=== PATIENT | male | born 1955 | race Caucasian/White ===

== ENCOUNTER 2025-03-22 09:48 | Emergency (ER) | payer MEDICARE, SELFPAY ==
--- NOTE | 2025-03-22 10:00 | ED_ITS ---
HPI - Ear Problem General Chief complaint: Ear Stated complaint: L ear pain Time Seen by Provider: 03/22/25 10:08 Source: patient, RN notes reviewed and old records reviewed Mode of arrival: ambulatory Limitations: no limitations History of Present Illness HPI Narrative: 69 year old male presents to [facility] care with complaints of pain to his left ear and feelings like water in his ear. Patient reports past history of excessive cerumen build up in his ears and he use to get his ears cleaned out at his doctor's office but they don't do that anymore. He reports that about a week ago he was eating a steak sandwich and felt a pop in his ear and ever since he has had some discomfort in his ea.,Patient reports no fevers or any dizziness. MD Complaint: ear pain Location: left ear Duration: intermittent Severity: mild Discharge from ear: Reports yes - clear Treatment prior to arrival: none Related Data Home Medications ?Medication ?Instructions ?Recorded ?Confirmed ?Last Taken ?Type fenofibrate nanocrystallized 145 mg PO 03/22/25 Unkno wn History mg tablet hydrochlorothiazide 25 mg tablet mg 03/22/25 Unknown History losartan 50 mg tablet mg 03/22/25 Unknown History simvastatin 40 mg tablet mg 03/22/25 Unknown History tamsulosin 0.4 mg capsule mg PO 03/22/25 Unknown Hist ory Allergies Allergy/AdvReac Type Severity Reaction Status Date / Time No Known Allergies Allergy Verified 03/22/25 11:08 Review of Systems Review of Systems: CONSTITUTIONAL: Denies malaise, chills, sweats, or fever. EYES: Denies visual changes, redness, or discharge. ENT: Reports rhinorrhea, congestion, sinus pain,left otalgia and sore throat. CARDIOVASCULAR: Denies chest pain, palpitations, or edema. RESPIRATORY: Reports cough.? Denies dyspnea. GASTROINTESTINAL: Denies abdominal pain, nausea, vomiting, diarrhea SKIN: Denies rash or itching. MUSCULOSKELETAL: Denies myalgia. NEUROLOGIC: Denies headache. All systems reviewed & are unremarkable except as noted in HPI and below PMFSH Past Medical History Medical History (Updated 03/24/25 @ 08:54 by Ciera Ham NP) Elevated cholesterol Hypertension Cancer of right kidney scheduled for right nephrectomy later this month March 2025 Bladder cancer Surgical History Surgical History (Updated 03/24/25 @ 08:47 by Ciera Ham NP) History of bladder surgery Social History Social History (Updated 03/24/25 @ 08:48 by Ciera Ham NP) Smoking status: Never smoker Alcohol intake: current Alcohol use details: rare social Substance use type: does not use Living arrangements: with family Gender identity (if verbalized by the patient): Male Comments At time of signature, agree with nursing past medical, surgical, social and family history. There is no relevant family history pertinent to the presenting complaint Exam Narrative: GENERAL: Well-appearing, well-nourished, and in no acute distress. HEAD: Normocephalic EYES: PERRLA, conjunctivae clear ENT: Nares clear, turbinates edematous and erythematous, clear discharge. Mucous membranes moist. Right TM pearly alejandre with dull light reflex; Left ear with cerumen impaction see procedure note able to visualize TM after some of wax removed with no TM redness, ear canal without redness, no tragal tenderness. Oropharynx erythematous without lesions. Tonsils not enlarged and without exudate, no drooling, no hoarseness, no trismus, uvula midline. NECK: Supple. No lymphadenopathy CHEST: Clear to auscultation, breath sounds equal. No wheezing, rhonchi, rales, or stridor. No respiratory distress, speaks in full sentences.no cough, SAO2 99% on room air HEART: Regular rate and rhythm. No murmur heard. SKIN: Warm, dry, no rash. NEURO: Alert and oriented x3. PSYCH: Normal mood and affect Course Course Emergency Course: Patient is aware of diagnosis, understands and agrees to treatment plan.? Anticipatory guidance given.? Patient agrees to follow-up as directed and is aware of reasons to seek care at the emergency department. Portions of this record may have been created with voice recognition software Level of Care: Express Care Visit Vital Signs Vital signs: Vital Signs Temperature 36.6 C 03/22/25 10:08 Pulse Rate 86 03/22/25 10:08 Respiratory Rate 16 03/22/25 10:08 Blood Pressure 124/65 03/22/25 10:08 Pulse Oximetry 99 03/22/25 10:08 Temperature 36.6 C 03/22/25 10:08 Pulse Rate 86 03/22/25 10:08 Respiratory Rate 16 03/22/25 10:08 Blood Pressure 124/65 03/22/25 10:08 Pulse Oximetry 99 03/22/25 10:08 Reviewed Procedures Ear Wax Removal Left Ear: Ear Wax Removal Date: 03/22/25 Ear Wax Removal Time: 10:25 Cerumenolytic Used: 5-10% Sodium Bicarb solution Results: Re-examined: some cerumen remains TM Examination: TM(s) intact, normal appearance Ear Canal Exam: atraumatic Patient Tolerated Procedure: well Complications: no problems Technique: ear canal irrigated and ear canal curetted Additional Comments: left ear irrigated and curette used to remove some yellow wax, some cerumen remains. Patient tolerated procedure well Medical Decision Making Differential Diagnosis Differential Diagnosis: otitis media left ear, otitis externa left ear, cerumen impaction left ear, otalgia left ear Medical Records Medical records reviewed: Yes I reviewed the external patient's medical records. Vital Signs Vital Signs: Vital Signs Temperature 36.6 C 03/22/25 10:08 Pulse Rate 86 03/22/25 10:08 Respiratory Rate 16 03/22/25 10:08 Blood Pressure 124/65 03/22/25 10:08 Pulse Oximetry 99 03/22/25 10:08 Temperature 36.6 C 03/22/25 10:08 Pulse Rate 86 03/22/25 10:08 Respiratory Rate 16 03/22/25 10:08 Blood Pressure 124/65 03/22/25 10:08 Pulse Oximetry 99 03/22/25 10:08 reviewed Critical Care Time Critical Care Time Critical Care Time: No Discharge Plan Discharge Clinical Impression: Impacted cerumen of left ear, Otalgia of left ear Patient Disposition: Home Condition: Stable Instructions: Carbamide Peroxide (Into the ear) Additional Instructions: use Debrox or generic form 10 drops to each ear once per week Tylenol for any discomfort Zyrtec or Claritin daily for any sinus congestion or drainage If your symptoms persist, change or worsen significantly before you can contact your personal physician then please, without delay, go to the emergency department for further evaluation. Follow-up with PCP in 7-10 days or sooner if needed Patient Language: Canadian Prescriptions: No Action losartan 50 mg tablet simvastatin 40 mg tablet tamsulosin 0.4 mg capsule PO hydrochlorothiazide 25 mg tablet fenofibrate nanocrystallized 145 mg tablet PO Follow-up/Referrals: PHYSICIAN NOT ON STAFF,NONSTAFF [Primary Care Provider] Time of Disposition: 10:55 Quality [place] Coma Scale Eyes: Open Verbal: Oriented and Alert Motor: Follows Commands Kyle Coma Total Score: 15
[2025-03-22 10:08] VITALS: BP 124/65; PULSE 86; RESP 16; TEMP 36.6; O2SAT 99
== END 2025-03-22 10:58 | disposition home or self-care (01) ==
PROVIDERS: Emergency Provider Registered Nurse
DX: H61.22 Impacted cerumen, left ear (principal); H92.02 Otalgia, left ear; I10 Essential (primary) hypertension; E78.00 Pure hypercholesterolemia, unspecified; C67.9 Malignant neoplasm of bladder, unspecified; C79.00 Secondary malignant neoplasm of unspecified kidney and renal pelvis
CPT/HCPCS: 69210; 99202; A9270; G0463

== ENCOUNTER 2025-05-10 09:18 | Outpatient (CLI) | payer MEDICARE, SELFPAY ==
--- OUTSIDE RECORDS SUMMARY | 2025-05-10 08:30 | XMS_ITS | Encounter Summary ---
Author Organization [facility] Address [address] [place] [address] Care Team Providers Care Business Intelligence Architect Name Role Phone Kemal Ash DO Primary Care Provide r Reason for Referral * Eval and Treat (Routine) - Open Specialty Diagnoses / Procedures Referred By Contjenn sol Referred To Contact Oncology Diagnoses Carcinoma of right renal pelvis (CMS/HCC) Procedures MI OFFICE/OUTPATIENT ESTABLISHED MOD MDM 30 MIN MI OFFICE/OUTPATIENT NEW MODERATE MDM 45 MINUTES Jay Ayala MD [address] [address] Phone: tel: fax: Referral ID Status Reason Start Date Expiration Date Visits Re quested Visits Authorized [id number] Open 05/10/2025 05/11/2026 1 1 TAL ASSOCIATE MEDIA DIRECTOR Reason for Visit * Reason Comments Establish Care Encounter Details Date Type Department Care Team (Late st Contact Info) Description 05/10/2025 8:30 AM DIGITAL ASSOCIATE MEDIA DIRECTOR Office Visit [facility] Oncology and Hematology - [place] [address] [place] [address] [address] [place] [address] [place] [address] [place] [address] [place] [id number] 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); Chronic anemia Social History Tobacco Use Types Packs/Day Years Used Date Smoking Tobacco: Former Cigars Q uit: 11/06/1981 Passive Smoke Exposure: Past Smokeless Tobacco: Never Tobacco Cessation:Counseling Given: Not Answered Alcohol Use Standard Drinks/Week Comments Not Currently 2 (1 standard drink = 0.6 oz pur e alcohol) No drinks in 3 months Feeling Safe Answer Date Recorded Are you in a relationship wi th someone who hurts you emotionally and/or physically? No 05/04/2025 Food Insecurity Answer Date Recorded Patient needs follow up regardin 12/21/2024 Transportation Needs Answer Date Record ed Patient needs follow up regardin 12/21/2024 Utility Needs Answer Date Recorded Patient needs follow up regardin 12/21/2024 Sex and Gender Information Value Date Recorded Sex Assigned at Not on file Legal Sex Male 4:39 AM DIGITAL ASSOCIATE MEDIA DIRECTOR Gender Identity Not on file Sexual Orientation Not on file documented as of this encounter Last Filed Vital Signs Vital Sign Reading Time Taken Comments Blood Pressure 139/73 05/10/2025 8:32 AM DIGITAL ASSOCIATE MEDIA DIRECTOR Pulse 73 05/10/2025 8:32 AM DIGITAL ASSOCIATE MEDIA DIRECTOR Temperature 36.6 C (97.9 F) 05/10/2025 8:32 AM DIGITAL ASSOCIATE MEDIA DIRECTOR Respiratory Rate 14 05/10/2025 8:32 AM DIGITAL ASSOCIATE MEDIA DIRECTOR Oxygen Saturation 95% 05/10/2025 8:32 AM DIGITAL ASSOCIATE MEDIA DIRECTOR Inhaled Oxygen Concentration - - Weight 112.9 kg (248 lb 12.8 oz) 05/10/2025 8:32 AM DIGITAL ASSOCIATE MEDIA DIRECTOR Height - - Body Mass Index 35.7 05/04/2025 1:40 PM CDT documented in this encounter Progress Notes * Jay Ayala MD - 05/10/2025 12:20 PM CST Hematology-oncology consult Note Requesting Physician George Moya MD Primary Care Physician Kemal Ash, Problem list Patient Active Problem List Diagnosis Code Essential hypertension, benign I10 High cholesterol E78.00 History of bladder cancer Z85.51 Hyperglycemia R73.9 KELLY (acute kidney injury) N17.9 Urothelial cancer (CMS/HCC) C68.9 Previous TREATMENT ? Measurable Disease ? Reason for Visit Anuel Palacio is a 69 y.o. male who was referred for consultation for urothelial carcinoma. History of present illness This is a pleasant 69-year-old male with history of early-stage bladder cancer diagnosed in September 2020 along with history of hypertension, hyperlipidemia developed hematuria in November [address] Mcknight in the urology. CT abdomen pelvis done on January 01, 2025 showed right renal pelvis mass with there was concern of possible liver lesion. Patient had MRI abdomen done on January 16 that showed no suspicious finding in the liver or in the kidney. PET scan done on February 27, 2025 showed no uptake in any areas in the lungs or in the liver. Patient had cystoscopy done on February 14, 2025 and biopsy of the right kidney confirmed papillary urothelial carcinoma at the right renal pelvis. Patient underwent right radical nephrectomy on April 03, 2025 and pathology revealed T3 high-grade papillary invasive urothelial carcinoma with predominantly squamous differentiation. Resectionmargins were free of tumor with no lymphovascular invasion. Tumor invades into the peripelvic fat and renal parenchyma. No lymph node or malignancy identified. He is in my office today to discuss adjuvant chemotherapy options. Denies any other complaints today. Past Medical History Past Medical History: Diagnosis Date Cancer (CMS/HCC) bladder 12/2020 Heart disease, unspecified Hematuria HTN (hypertension) Hyperlipidemia Surgical History Past Surgical History: Procedure Laterality Date HX COLONOSCOPY N/A 06/13/2021 COLONOSCOPY performed by Vadim Bliss MD at [facility] HX NASAL/SINUS SURGERY in his teens HX TONSILLECTOMY MI COLONOSCOPY FLX DX W/COLLJ SPEC WHEN PFRMD N/A 01/08/2015 COLONOSCOPY performed by Vadim Bliss MD at [facility] MI COLONOSCOPY FLX DX W/COLLJ SPEC WHEN PFRMD N/A 03/15/2018 COLONOSCOPY performed by Vadim Bliss MD at [facility] MI CYSTO W/DESTRUCTION OF LESIONS N/A 12/06/2020 CYSTOSCOPY BLUELIGHT WITH CYSVIEW performed by Panchito Barrett MD at [facility] CYSTO W/DESTRUCTION OF LESIONS N/A 02/14/2025 CYSTOURETHROSCOPY BLUELIGHT WITH CYSVIEW, WITH RANDOM BLADDER BIOPSY performed by Panchito Barrett MD at [facility] OR MI CYSTO W/INSERT URETERAL STENT Bilateral 01/19/2025 CYSTOURETHROSCOPY URETERAL STENT INSERTION performed by Panchito Barrett MD at [facility] OR MI CYSTO W/INSERT URETERAL STENT Bilateral 02/14/2025 CYSTOURETHROSCOPY URETERAL STENT EXCHANGE performed by Panchito Barrett MD at [facility] MI CYSTOURETHROSCOPY N/A 04/03/2025 CYSTOURETHROSCOPY FLEXIBLE INTRAVESICAL INSTILLATION OF GEMCITABINE performed by Loyd Barrett MD at [facility] OR [facility] MI CYSTOURETHROSCOPY W/DEST &/RMVL TUMOR LARGE N/A 12/06/2020 BLADDER TUMOR TRANSURETHRAL RESECTION performed by Panchito Barrett MD at [facility] OR [facility] MI CYSTOURETHROSCOPY W/DEST &/RMVL TUMOR LARGE N/A 02/14/2025 CYSTOURETHROSCOPY BLADDER TUMOR RESECTION performed by Panchito Barrett MD at [facility] MI CYSTOURETHROSCOPY W/URETERAL CATHETERIZATION Right 12/06/2020 PYELOGRAM RETROGRADE performed by Panchito Barrett MD at [facility] OR [facility] MI CYSTOURETHROSCOPY W/URETERAL CATHETERIZATION Bilateral 01/19/2025 PYELOGRAM RETROGRADE performed by Panchito Barrett MD at [facility] OR MI LAPAROSCOPY NEPHRECTOMY W/TOTAL URETERECTOMY Right 04/03/2025 NEPHROURETERECTOMY ROBOTIC XI performed by Panchito Barrett MD at [facility] OR [facility] MI URETERAL ENDOSCOPY VIA URETEROST W/WO DIL URETER Right 02/14/2025 URETEROSCOPY, BIOPSY performed by Panchito Barrett MD at [facility] OR XR RETROGRADE PYELOGRM W WO KUB Bilateral 02/14/2025 PYELOGRAM RETROGRADE performed by Panchito Barrett MD at [facility] OR Medications Current Outpatient Medications Medication Sig Dispense Refill fenofibrate nanocrystallized (TRICOR) 145 mg tablet TAKE 1 TABLET(145 MG) BY MOUTH DAILY 100 Tablet3 hydroCHLOROthiazide 25 mg tablet TAKE 1 TABLET(25 MG) BY MOUTH DAILY 100 Tablet 3 losartan (COZAAR) 50 mg tablet TAKE 1 TABLET(50 MG) BY MOUTH DAILY 90 Tablet 3 simvastatin (ZOCOR) 40 mg tablet TAKE 1 TABLET(40 MG) BY MOUTH IN THE EVENING 90 Tablet 3 aspirin (ECOTRIN EC) 81 mg Tablet, Delayed Release (E.C.) Take 81 mg by mouth daily. No current facility-administered medications for this visit. Allergies No Known Allergies Immunizations: Immunization History Administered Date(s) Administered (ADACEL/BOOSTRIX)(10 YR UP) TDAP VACCINE, 0.5ML, IM 11/20/2014, 11/20/2014 (CARRIE) COVID-19 VACCINE - EMERGENCY USE AUTHORIZATION, AD26,COV2S(PF) 0.5 ML IM SUSP 09/12/2020,05/03/2021 (PFIZER)(12 YR UP) COVID-19 VACCINE - EMERGENCY USE AUTHORIZATION, MRNA, [id number](PF) 30 MCG/0.3 MLIM SUSP 04/18/2022, 03/22/2023 (PNEUMOVAX 23)(50 YRS UP) PNEUMOCOCCAL POLYSACCHARIDE (PPV23) 0.5 ML, IM 07/07/2019, 06/05/2021 (SHINGRIX)(50 YRS UP) ZOSTER VACCINE RECOMBINANT, 0.5 ML, IM 12/04/2024 INFLUENZA VACCINE HIGH DOSE QUADRIVALENT 65 YR UP PF IM 03/21/2020 INFLUENZA VACCINE QUADRIVALENT 6 MOS UP PF IM 03/25/2018 Influenza Seasonal Unspecified Formulation IM 05/03/2021, 04/18/2022, 03/22/2023 Influenza Vaccine High Dose 65+ Yrs IM 07/07/2019 Influenza Vaccine Quad Split 3+ Yrs Im 03/18/2017 Influenza Vaccine Split 3+ Yrs PF IM 05/10/2015, 04/10/2016 Zoster Vaccine Live SQ 11/20/2014 Family History Family History Problem Relation Name Age of Onset Cancer Father Yoandy Palacio Colon Cancer Father Yoandy Palacio Heart Disease Mother Social History Social History Tobacco Use Smoking status: Former Types: Cigars Quit date: 11/06/1981 Years since quittin.5 Passive exposure: Past Smokeless tobacco: Never Substance Use Topics Alcohol use: Not Currently Alcohol/week: 2.0 standard drinks of alcohol Types: 2 Cans of beer per week Comment: No drinks in 3 months Review of Systems Constitutional: Patient did not mention fever; no night sweats; no anorexia; no weight loss; no fatique NEENT: Patient did not mention headache; no change in vision; no change in hearing; no sore throat;no dysphagia Respiratory: Patient did not mention shortness of breath; no pleuritic chest pain; no cough; no hemoptysis Cardiac: Patient did not mention cardiac-like chest pain; no palpitations; no orthopnea; no PND; noDOE GI: Patient did not mention abdominal pain; no nausea; no vomiting; no diarrhea; no hematochezia; no melena : Patient did not mention dysuria; no frequency; no hesitancy; no hematuria SYSTEM PLANNING ENGINEER: Musculosketetal: Patient did not mention bone pain; no arthralgia; no joint swelling; no myalgia; Skin: Patient did not mention pruritis; no rash; no petechiae; no ecchymoses Endocrine: Patient did not mention polydipsia; no polyuria; no unusual weight gain Neuro: Patient did not mention headache; no change in vision; no sensory changes; no muscle weakness; no confusion; no seizures Psych: Patient did not mention anxiety; no depression; Physical Exam Vitals: As per nursing note Constitutional: Well developed, well nourished, no acute distress, non-toxic appearance Teeth and gum. No signs of infection or swelling. Eyes: PERRL, conjunctiva normal HEENT: Atraumatic, external ears normal, nose normal, oropharynx moist, no pharyngeal exudates. no sinus tenderness Neck- normal range of motion, no tenderness, supple Respiratory: No respiratory distress, normal breath sounds, no rales, no wheezing Cardiovascular: Normal rate, normal rhythm, no murmurs, no gallops, no rubs GI: Soft, nondistended, normal bowel sounds, nontender, no splenomegaly, no hepatomegaly, no mass, no rebound, no guarding : No costovertebral angle tenderness Musculoskeletal: No edema, no tenderness, no deformities. Back- no tenderness Integument: Well hydrated, no rash, Digits and nails inspection normal Lymphatic: No lymphadenopathy noted Neurologic: Alert & oriented x 3, CN 2-12 normal, normal motor function, normal sensory function, no focal deficits noted Psychiatric: Speech and behavior appropriate ? labs No results found for this or any previous visit (from the past 24 hours). Labs from April 06, 2025 showed WBC 6.7 hemoglobin 10.7 platelet 199,000 creatinine 1.4 Pathology ? Imaging & Other Studies Performance Status? ECOG performance status 0 Assessment / Plan: ? High-grade papillary invasive urothelial carcinoma with predominantly squamous differentiation status post right kidney nephro ureterectomy done on April 03, 2025. T3 NX M0 stage III disease. Pathology showed high-grade papillary invasive urothelial carcinoma with predominantly squamous differentiation. T3 disease with tumor invading into peripelvic fat and renal parenchyma. Resection marginsare negative for tumor. No lymphovascular invasion. No lymph node identified. Patient also has a previous history of early-stage bladder cancer diagnosed in 2020. CT abdomen pelvis done on January 01, 2025 showed right renal pelvis mass with there was concern of possible liver lesion. Patient had MRI abdomen done on January 16 that showed no suspicious finding in the liver or in the kidney. PET scan done on February 27, 2025 showed no uptake in any areas in the lungs or in the liver. I will refer him for chemotherapy teaching for adjuvant chemotherapy with carboplatin and gemcitabine for 4 cycles. I have discussed the side effects of chemotherapy. We will avoid cisplatin him due to kidney function. He would like to get chemotherapy through the peripheral IV and will avoid port placement. Repeat imaging studies and surveillance will be performed based on NCCN guidelines. I have answered all the questions to patient's satisfaction. Anemia. I will check iron studies and vitamin B12 level today. Likely anemia secondary to renal insufficiency. Thank you very much for allowing me to participate in Anuel Palacio's evaluation and management.Please feel free to contact if I can be of any further assistance in your patient???s care requiring hematology or oncology evaluation. Sincerely, ? ? Jay Ayala M.D. cell TOBACCO COUNSELING He is not a tobacco/nicotine user. Jay Ayala MD ,05/10/2025 12:20 PM ? Total time spent 60 minutes, two third of the total time spent counseling patient [id number]. CC:?Kemal Ash, DO George Moya MD TAL ASSOCIATE MEDIA DIRECTOR documented in this encounter Plan of Treatment Upcoming Encounters Date Type Department Care Team (Late st Contact Info) Description 07/27/2025 9:15 AM DIGITAL ASSOCIATE MEDIA DIRECTOR Procedure visit [facility] Urology at the [facility] [address] [place] [address] Panchito Barrett MD [address] [facility] [address] [place] [address] 09/28/2025 10:20 AM CDT Office Visit [facility] Urology at the [facility] [address] [place] [address] Panchito Barrett MD [address] [facility] [place] [address] 12/05/2025 9:30 AM CDT Office Visit [facility] Internal Medicine Alva Ricky [address] [facility] [address] [place] [id number] [place] [address] [address] [facility] [address] [place] [address] Scheduled Orders Name Type Priority Associated Diagnoses Orde r Schedule FERRITIN Lab Routine Chronic anemia Expected: 05/10/2025, Expires: 05/10/2026 IRON, TIBC, AND PERCENT SATURATION Lab Routine Chronic anemia Expected: 05/10/2025, Expires: 05/10/2026 VITAMIN B12 AND FOLATE Lab Routine Chronic anemia Expected: 05/10/2025, Expires: 05/10/2026 CBC WITH DIFFERENTIAL Lab Stat Chronic anemia Expected: 05/10/2025, Expires: 05/10/2026 COMPREHENSIVE METABOLIC PANEL Lab Stat Chronic anemia Expected: 05/10/2025, Expires: 05/10/2026 TRANSFERRIN RECEPTOR TFR SOLUBLE Lab Routine Chronic anemia Expected: 05/10/2025, Expires: 05/10/2026 Scheduled Referrals Name Type Priority Associated Diagnoses Orde r Schedule AMB REFERRAL TO CHEMO TEACHING Outpatient Referral Routine Carcinoma of right renal pelvis (CMS/HCC) Ordered: 05/10/2025 documented as of this encounter Visit Diagnoses Diagnosis Carcinoma of right renal pelvis (CMS/HCC)- Primary Chronic anemia Anemia, unspecified documented in this encounter Care Teams Business Intelligence Architect Relationship Specialty [place] [address] [facility] [address] [place] [id number] PCP - General 04/09/25 documented as of this encounter
[2025-05-10 09:29] LABS: Hematocrit 38.7 % (42.0-52.0); Hemoglobin 11.9 g/dL (14.0-18.0); Immature Granulocyte Percent A 1.9 % (0-0.5); Lymphocytes Absolute Auto 1.06 K/mm3 (0.9-3.2); Mean Corpuscular HGB Conc 30.7 g/dl (32-36); Mean Corpuscular Hemoglobin 29.2 pg (26-34); Mean Corpuscular Volume 94.9 fl (80-100); Nucleated Red Blood Cells Absolute Auto 0.000 K/mm3 (0.0-0.012); Nucleated Red Blood Cells Perc 0.0 % (0.0-0.2); Platelet Count Result 201 k/mm3 (150-375); Red Blood Count 4.08 M/mm3 (4.6-6.20); White Blood Count 7.8 K/mm3 (4.5-10.0)
[2025-05-10 12:06] LABS: Alanine Aminotransferase 18 U/L (6-50); Albumin Level 4.4 g/dL (3.5-5.1); Alkaline Phosphatase 46 U/L (38-126); Anion Gap 8 mmol/L (4-12); Aspartate Amino Transferase 21 U/L (17-59); Bilirubin,Total 0.4 mg/dL (0.2-1.3); Blood Urea Nitrogen 26 mg/dL (9-20); Calcium 9.8 mg/dL (8.4-10.2); Carbon Dioxide 28 mmol/L (22-30); Chloride 105 mmol/L (98-107); Estimated Glomerular Filt Rate 34; Glucose 104 mg/dL (65-110); Potassium 4.9 mmol/L (3.4-5.0); Sodium 141 mmol/L (137-145); Total Protein 7.4 g/dL (6.3-8.2)
[2025-05-10 12:46] LABS: Iron 71 ug/dL (49-181)
[2025-05-10 13:05] LABS: Percent Iron Saturation 16 % (20-50)
[2025-05-10 13:29] LABS: Ferritin 148.00 ng/mL (11.1-264)
[2025-05-10 13:51] LABS: Vitamin B12 256.0 pg/mL (239-931)
--- OUTSIDE RECORDS SUMMARY | 2025-05-10 17:55 | XMS_ITS | Encounter Summary ---
Author Organization [facility] Address [address] [place] [address] Care Team Providers Care Survey Cad Technician Name Role Phone Kemal Ash DO Primary Care Provide r Reason for Referral * CT Scan (Routine) - Closed Specialty Diagnoses / Procedures Referred By Tanya sol Referred To Contact Diagnoses Lung nodule Procedures CT CHEST WO CONTRAST Nielsh Richmond MD Phone: tel: fax: [facility] CT Scan [address] [address] Phone: tel: fax: Referral ID Status Reason Start Date Expiration Date Visits Re quested Visits Authorized [id number] Closed 01/16/2025 03/17/2025 1 1 Reason for Visit * Reason Comments Needs Orders Written Encounter Details Date Type Department Care Team (Late st Contact Info) Description 01/03/2025 Telephone [facility] Internal Medicine Alva García [address] [facility] [address] [place] [address] Nilesh Richmond MD [address] [place] [phone] Needs Orders Written Social History Tobacco Use Types Packs/Day Years Used Date Smoking Tobacco: Former Cigars Q uit: 11/06/1981 Passive Smoke Exposure: Past Smokeless Tobacco: Never Alcohol Use Standard Drinks/Week Comments Yes 2 (1 standard drink = 0.6 oz pur e alcohol) k 0-3 drinks/beer a day Food Insecurity Answer Date Recorded Patient needs follow up regardin 12/21/2024 Transportation Needs Answer Date Record ed Patient needs follow up regardin 12/21/2024 Utility Needs Answer Date Recorded Patient needs follow up regardin 12/21/2024 Sex and Gender Information Value Date Recorded Sex Assigned at Not on file 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 Barrett office. They recommend a ct of the chest in 1 yr from now and would like for us to order it. Order was placed and will have patient call to get it scheduled. * Telephone Encounter - Elham Womack LPN - 01/03/2025 11:18 AM CDT He stated the oncologist wants a chest xray- Gonna have surgery on the . He says he doesn't know why he needs the chest xray. He doesn't want to call them to find out why. He says we need to do that. See's Dr. Mcknight-doesn't have the number for the office. Contacted the office Dr. Barrett, received [employer], Doormen. message for [place] to let us know. * Telephone Encounter - Pippa Agosto - 01/03/2025 10:13 AM CDT Copied from [facility] #[id number]. Topic: CPA Information Request - Order or Referral Request >> Jan 03, 2025 10:12 AM Pippa Fraga wrote: Caller Name: Anuel Palacio Patient/Caregiver Callback Number: Telephone Information: Call Notes: Patient's oncologist wants him to get a chest x-ray Caller is requesting: New Non Lab Order Has the patient been seen for this issue? 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 Medicine [address] [place] [phone] Panchito Barrett MD [address] [address] 09/28/2025 10:20 AM CDT Office Visit [facility] Urology at the [facility] [address] [place] [phone] Panchito Barrett MD [address] [address] 12/05/2025 9:30 AM CDT Office Visit [facility] Internal Medicine [place] Ricky [address] [place] [phone] [place] [address] [place] [address] documented as of this encounter Results * CT CHEST WO CONTRAST (01/16/2025 10:22 AM CDT) Anatomical Region Laterality Modality Chest Computed Tomogra phy 01/16/2025 10:1 7 AM CDT Impressions 01/16/2025 12:44 PM CDT IMPRESSION: 1. Scattered sub-6 mm noncalcified pulmonary nodules are indeterminate. While potentially benign relating to prior granulomatous, a follow-up chest CT is recommended in 12 months. 2. Tracheobronchomalacia. Mild pulmonary parenchymal mosaicism suggestive of small airways disease and air trapping on this partially expiratory exam. 3. Asbestos-related pleural disease. No pleural effusion or pneumothorax. 4. Multichamber cardiomegaly without pericardial effusion. Heavy multivessel coronary calcifications. DICTATION LOCATION: Location 1 - [facility] 01/16/2025 12:44 PM CDT EXAMINATION: CT CHEST WO CONTRAST DATE: 01/16/2025 10:22 AM HISTORY: lung nodules Lung nodule TECHNIQUE: Computed tomography of the chest was performed without contrast according to standard protocol. The examination was performed with the adjustment of mA according to the patient size and/or the use of Iterative Reconstruction Technique. FINDINGS: Comparison made with the abdominal CT from 01/01/2025 Lines/tubes: None. Heart and mediastinum: Multichamber cardiac enlargement is present. No pericardial effusion is seen. Heavy multivessel coronary calcifications are present. The ascending aorta and main pulmonary artery are nondilated. No enlarged mediastinal or hilar lymph nodes are seen. Lungs and Airways: Tracheobronchomalacia. Mild diffuse bronchial wall thickening. Lungs are hypoinflated with dependent atelectasis bilaterally. Mild diffuse pulmonary parenchymal mosaicism may reflect small airways disease and air trapping on this partially expiratory examination. There is a curvilinear sub-6 mm noncalcified juxtapleural nodule in the posterobasal right lower lobe, favored to be benign. There is a 5 mm solid noncalcified nodule in the lateral basal left lower lobe (series 2, image 306). Indeterminate 3 mm solid noncalcified nodule in the apical right upper lobe (series 2, image 136). Indeterminant 4 mm noncalcified nodule in the periphery of the lingula (series 2, image 262) and medial right middle lobe (series 2, image 275) Indeterminate 3 mm noncalcified nodule in the periphery of the anterior left upper lobe (series 2, image 188). There are a few additional scattered noncalcified nodules below 3 mm. The lungs are free of focal consolidation. Pleura: Partially calcified pleural plaques bilaterally consistent with asbestos-related pleural disease. No pleural effusion or pneumothorax. Lower neck and soft tissues: The imaged thyroid gland appears normal. Mild symmetric gynecomastia. No axillary or subpectoral lymphadenopathy. Abdomen: Imaged portions of the upper abdomen are within normal limits. Bones: Multilevel thoracic diffuse idiopathic skeletal hyperostosis. No suspicious lytic or blastic lesions are seen. INCIDENTAL FINDINGS: None. Procedure Note Kobi Rivera, DO - 01/16/2025 EXAMINATION: CT CHEST WO CONTRAST DATE: 01/16/2025 10:22 AM HISTORY: lung nodules Lung nodule TECHNIQUE: Computed tomography of the chest was performed without contrast according to standard protocol. The examination was performed with the adjustment of mA according to the patient size and/or the use of Iterative Reconstruction Technique. FINDINGS: Comparison made with the abdominal CT from 01/01/2025 Lines/tubes: None. Heart and mediastinum: Multichamber cardiac enlargement is present. No pericardial effusion is seen. Heavy multivessel coronary calcifications are present. The ascending aorta and main pulmonary artery are nondilated. No enlarged mediastinal or hilar lymph nodes are seen. Lungs and Airways: Tracheobronchomalacia. Mild diffuse bronchial wall thickening. Lungs are hypoinflated with dependent atelectasis bilaterally. Mild diffuse pulmonary parenchymal mosaicism may reflect small airways disease and air trapping on this partially expiratory examination. There is a curvilinear sub-6 mm noncalcified juxtapleural nodule in the posterobasal right lower lobe, favored to be benign. There is a 5 mm solid noncalcified nodule in the lateral basal left lower lobe (series 2, image 306). Indeterminate 3 mm solid noncalcified nodule in the apical right upper lobe (series 2, image 136). Indeterminant 4 mm noncalcified nodule in the periphery of the lingula (series 2, image 262) and medial right middle lobe (series 2, image 275) Indeterminate 3 mm noncalcified nodule in the periphery of the anterior left upper lobe (series 2, image 188). There are a few additional scattered noncalcified nodules below 3 mm. The lungs are free of focal consolidation. Pleura: Partially calcified pleural plaques bilaterally consistent with asbestos-related pleural disease. No pleural effusion or pneumothorax. Lower neck and soft tissues: The imaged thyroid gland appears normal. Mild symmetric gynecomastia. No axillary or subpectoral lymphadenopathy. Abdomen: Imaged portions of the upper abdomen are within normal limits. Bones: Multilevel thoracic diffuse idiopathic skeletal hyperostosis. No suspicious lytic or blastic lesions are seen. INCIDENTAL FINDINGS: None. IMPRESSION: 1. Scattered sub-6 mm noncalcified pulmonary nodules are indeterminate. While potentially benign relating to prior granulomatous, a follow-up chest CT is recommended in 12 months. 2. Tracheobronchomalacia. Mild pulmonary parenchymal mosaicism suggestive of small airways disease and air trapping on this partially expiratory exam. 3. Asbestos-related pleural disease. No pleural effusion or pneumothorax. 4. Multichamber cardiomegaly without pericardial effusion. Heavy multivessel coronary calcifications. DICTATION LOCATION: Location 1 - [facility] us Nilesh Richmond MD CT ORDERABLES Final Resu lt documented in this encounter Visit Diagnoses Diagnosis Lung nodule- Primary Solitary pulmonary nodule Lung nodule Solitary pulmonary nodule documented in this encounter Care Teams Survey Cad Technician Relationship Specialty [place] [address] [facility] [address] [place] [address] PCP - General 04/09/25 documented as of this encounter
--- OUTSIDE RECORDS SUMMARY | 2025-05-10 17:55 | XMS_ITS | Encounter Summary ---
Author Organization [facility] Address 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 Gender Identity Not on file Sexual Orientation Not on file documented as of this encounter Plan of Treatment Upcoming Encounters Date Type Department Care Team (Late st Contact Info) Description 07/27/2025 9:15 AM 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 OPERATOR Procedure visit [facility] [address] [place] [address] Panchito Barrett MD [address] [facility] [address] [place] [address] 09/28/2025 10:20 AM CDT Office Visit [facility] Urology at the [facility] [address] [place] [address] Panchito Barrett MD [address] [facility] [address] [place] [address] 12/05/2025 9:30 AM CDT Office Visit [facility] Internal Medicine Alva García [address] [address] [facility] [address] [place] [address] [place] [address] [place] [phone] documented as of this encounter Visit Diagnoses Not on filedocumented in this encounter Care Teams Sourcing Consultant Relationship Specialty [place] [address] [place] [phone] PCP - General 04/09/25 documented as of this encounter
--- OUTSIDE RECORDS SUMMARY | 2025-05-10 17:55 | XMS_ITS | Encounter Summary ---
Author Organization [facility] Address [address] [place] [address] Care Team Providers Care Laborer Laboratory Name Role Phone Kemal Ash DO Primary Care Provide r Reason for Visit * Reason Onset Date Comments Results 04/10/2025 Encounter Details Date Type Department Care Team (Late st Contact Info) Description 04/10/2025 Results Follow-Up [facility] Urology at the [facility] Medicine [address] [place] [address] Panchito Barrett MD [address] [facility] [address] [place] [address] PATHOLOGY Social History Tobacco Use Types Packs/Day Years [...] who hurts you emotionally and/or physically? 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 I advised him that we may consider chemotherapy for him. Will discuss this further at his upcoming appointment. I also advised him that his cystogram was negative for any urine leak. I will have him come in for nurse visit early next week for staple removal and [place] catheter removal (he was offered a visit this week also for [place] catheter removal but would prefer to come in forboth [place] catheter and staple removal at the same time). He will follow-up as scheduled with me on April 24, 2025. documented in this encounter Plan of Treatment Upcoming Encounters Date Type Department Care Team (Late st Contact Info) Description 07/27/2025 9:15 AM POLISHER HAND Procedure visit [facility] Urology at the [facility] Medicine [address] [place] [phone] Panchito Barrett MD [address] [place] [address] 09/28/2025 10:20 AM CDT Office Visit [facility] Urology at the [facility] Medicine [address] [place] [address] Panchito Barrett MD [address] [id number] 12/05/2025 9:30 AM CDT Office Visit [facility] Internal Medicine Alva García [address] [facility] [address] [place] [address] [place] [address] [facility] [address] [place] [address] documented as of this encounter Visit Diagnoses Not on filedocumented in this encounter Care Teams Laborer Laboratory Relationship Specialty [place] [address] [facility] [address] [place] [address] PCP - General 04/09/25 documented as of this encounter
--- OUTSIDE RECORDS SUMMARY | 2025-05-10 17:55 | XMS_ITS | Clinical Summary ---
Author Organization [employer] [place] Address [address] [place] [address] Care Team Providers Care Research Laboratory Specialist Name Role Phone Kemal Ash DO Primary Care Provide r Allergies No known active allergies Medications aspirin (ECOTRIN EC) 81 mg Tablet, Delayed Release (E.C.) Take 81 mg by mouth daily. Active simvastatin (ZOCOR) 40 mg tabletIndications:Hi gh cholesterol TAKE 1 TABLET(40 MG) BY MOUTH IN THE EVENING 90 Tablet 3 4 Active losartan (COZAAR) 50 mg tabletIndications:Es sential hypertension, benign TAKE 1 TABLET(50 MG) BY MOUTH DAILY 90 Tablet 3 5 Active hydroCHLOROthiazide 25 mg tabletIndications:Un controlled hypertension TAKE 1 TABLET(25 MG) BY MOUTH DAILY 100 Tablet 3 5 Active fenofibrate nanocrystallized (TRICOR) 145 mg tablet TAKE 1 TABLET(145 MG) BY MOUTH DAILY 100 Tablet 3 5 Active Active Problems Problem Noted Date Diagnosed Date Urothelial cancer 04/05/2025 Hyperglycemia 04/04/2025 KELLY (acute kidney injury) 04/04/2025 History of bladder cancer 09/14/2022 High cholesterol 05/10/2015 Essential hypertension, benign 11/20/2014 Resolved Problems Problem Noted Date Diagnosed Date Resolved Date Malignant neoplasm of practicing dermatologist ior wall of urinary bladder 01/27/2021 09/14/2022 Other and unspecified hyperlipidemia 12/13/2014 05/10/2015 Encounters Date Type Department Care Team Description 05/10/2025 8:30 AM TEXTBOOK ASSOCIATE Office Visit [facility] Oncology and Hematology [facility] [address] [place] [id number] Jay Ayala MD 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); Chronic anemia 05/09/2025 External Device Data STL ABSTRACTION Provider, Abstract 05/08/2025 External Device Data STL ABSTRACTION Provider, Abstract 05/08/2025 External Device Data STL ABSTRACTION Provider, Abstract 05/04/2025 2:30 PM CDT Office Visit [facility] Oncology and Hematology [facility]ly [facility] [address] [place] [address] George Moya MD 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); History of bladder cancer; S/p nephrectomy; Treatment plan provided; Health education/counseling 04/24/2025 12:00 PM CDT Office Visit [facility] Urology at the [facility] Medicine [address] [place] [address] Belia Barrett MD Urothelial cancer (CMS/HCC) (Primary Dx) 04/16/2025 9:00 AM CDT Clinical Support [facility] Urology at the [facility] Medicine [address] [place] [address] History of bladder cancer (Primary Dx) 04/10/2025 12:01 PM CDT - 04/10/2025 11:59 PM CDT Hospital Encounter [facility] [address] [place] [address] Belia Barrett MD Discharge Disposition: Home or Self Care 04/10/2025 External Device Data STL ABSTRACTION Provider, Abstract 04/10/2025 External Device Data STL ABSTRACTION Provider, Abstract 04/10/2025 External Device Data STL ABSTRACTION Provider, Abstract 04/10/2025 Results Follow-Up [facility] Urology at the [facility] [address] [place] [address] Belia Barrett MD PATHOLOGY 04/03/2025 3:27 PM CDT Anesthesia Event [facility] Operating Room [address] [place] [address] Tiffany Tucker MD 04/03/2025 1:13 PM CDT Anesthesia Event [facility] Operating Room [address] [place] [address] Romel Manning MD Turnbough, Christopher J, PA 04/03/2025 12:56 PM CDT - 04/03/2025 5:[address] [facility] Operating Room [address] [place] [address] Belia Barrett MD NEPHROURETERECTOMY ROBOTIC XI 04/03/2025 9:42 AM CDT - 04/06/2025 1:35 PM CDT Hospital Encounter [facility] Trauma and Surgery [address] [place] [address] Belia Barrett MD History of bladder cancer Discharge Disposition: Home or Self Care 03/20/2025 7:57 AM CDT - 03/20/2025 11:59 PM CDT Hospital Encounter [facility] [address] [place] [address] Belia Barrett MD Discharge Disposition: Home or Self Care 03/20/2025 External Device Data STL ABSTRACTION Provider, Abstract 03/13/2025 External Device Data STL ABSTRACTION Provider, Abstract 03/09/2025 Abstract [facility] Internal Medicine [place] García [address] [place] [address] Maryam Kaur 03/08/2025 Telephone [facility] Urology at the [facility] [address] [place] [address] Belia Barrett MD Surgery 03/06/2025 External Device Data STL ABSTRACTION Provider, Abstract 03/02/2025 10:30 AM CDT Office Visit [facility] Urology at the [facility] [address] [place] [address] Belia Barrett MD Urothelial cancer (CMS/HCC) (Primary Dx) 02/27/2025 9:57 AM CDT - 02/27/2025 11:59 PM CDT Hospital Encounter [facility] Nuclear Medicine [address] [place] [address] [id number] Belia Barrett MD Discharge Disposition: Home or Self Care 02/27/2025 Results Follow-Up [facility] Urology at the [facility] [address] [place] [address] Belia Barrett MD PET TUMOR OR INFECTION IMG W CT SKB MDTH 02/16/2025 Results Follow-Up [facility] Urology at the [facility] [address] [place] [address] Belia Barrett MD PATHOLOGY 02/14/2025 7:05 AM CDT Anesthesia Event [facility] [address] [place] [address] Shamar Hearn MD Reznichenko, Svetlana, [facility] 02/14/2025 7:00 AM CDT - 02/14/2025 11:59 PM CDT Hospital Encounter [facility] Radiology [address] [place] [address] Belia Barrett MD Discharge Disposition: Home or Self Care 02/14/2025 7:00 AM CDT - 02/14/2025 9:02 AM CDT Surgery [facility] [address] [place] [address] Belia Barrett MD URETEROSCOPY, BIOPSY 02/14/2025 5:36 AM CDT - 02/14/2025 10:13 AM CDT Hospital Encounter [facility] PrePost [address] [place] [address] Belia Barrett MD Gross hematuria Discharge Disposition: Home or Self Care from Last 3 Months Immunizations Immunization Administration Dates Next Due (ADACEL/BOOSTRIX)(10 YR UP) TDAP VACCINE, 0.5ML, IM 11/20/2014,11/20/2014 (CARRIE) COVID-19 VACCINE - EMERGENCY USE AUTHORIZATION, AD26,COV2S(PF) 0.5 ML IM SUSP 05/03/2021,09/12/2020 (PFIZER)(12 YR UP) COVID-19 VACCINE - EMERGENCY USE AUTHORIZATION, MRNA, [id number](PF) 30 MCG/0.3 ML IM SUSP 03/22/2023,04/18/2022 (PNEUMOVAX 23)(50 YRS UP) PN EUMOCOCCAL POLYSACCHARIDE (PPV23) 0.5 ML, IM 06/05/2021,07/07/2019 (SHINGRIX)(50 YRS UP) ZOSTER VACCINE RECOMBINANT, 0.5 ML, IM 12/04/2024 INFLUENZA VACCINE HIGH DOSE QUADRIVALENT 65 YR UP PF IM 03/21/2020 INFLUENZA VACCINE QUADRIVALE NT 6 MOS UP PF IM 03/25/2018 Influenza Seasonal Unspecifi ed Formulation IM 03/22/2023,04/18/2022,05/03/2021 Influenza Vaccine High Dose 65+ Yrs IM 0 Influenza Vaccine Quad Split 3+ Yrs Im 7 Influenza Vaccine Split 3+ Yrs PF IM 04/10/2016, 05/10/2015 Zoster Vaccine Live SQ 11/20/2014 Family History Medical History Relation Name Comments Cancer Father Yoandy Palacio Colon Cancer Father Yoandy Palacio Heart Disease Mother Relation Name Status Comments Father Yoandy Palacio Mother Alive Social History Tobacco Use Types Packs/Day Years [...] on file Legal Sex Male 4:39 AM TEXTBOOK ASSOCIATE Gender Identity Not on file Sexual Orientation Not on file Last Filed Vital Signs Vital Sign Reading Time Taken Comments Blood Pressure 139/73 05/10/2025 8:32 AM TEXTBOOK ASSOCIATE Pulse 73 05/10/2025 8:32 AM TEXTBOOK ASSOCIATE Temperature 36.6 C (97.9 F) 05/10/2025 8:32 AM TEXTBOOK ASSOCIATE Respiratory Rate 14 05/10/2025 8:32 AM TEXTBOOK ASSOCIATE Oxygen Saturation 95% 05/10/2025 8:32 AM TEXTBOOK ASSOCIATE Inhaled Oxygen Concentration - - Weight 112.9 kg (248 lb 12.8 oz) 05/10/2025 8:32 AM TEXTBOOK ASSOCIATE Height 177.8 cm (5' 10) 05/04/2025 1:40 PM CDT Body Mass Index 35.7 05/04/2025 1:40 PM CDT Plan of Treatment Upcoming Encounters Date Type Department Care Team (Late st Contact Info) Description 07/27/2025 9:15 AM TEXTBOOK ASSOCIATE Procedure visit [facility]rology at the [facility] Medicine [facility] [address] [place] [address] Belia Barrett MD [address] [address] 09/28/2025 10:20 AM CDT Office Visit [facility]rology at the [facility] Medicine [address] [place] [phone] Belia Barrett MD [address] [address] 12/05/2025 9:30 AM CDT Office Visit [facility] Internal Medicine [place] García [address] [place] [address] [place] [address] [place] [address] Health Maintenance Due Date Last Done Comments FIT-DNA Q 3 years 1999 FIT/FOBT Q 1 year 1999 Flex Sig/CT Colonography Q 5 years 1999 RSV VACCINE (60+ or ) (1 - Risk 50-74 years 1-dose series) 2004 PNEUMOCOCCAL VACCINE 50+ YEA RS (2 of 2 - PCV) 06/05/2022 06/05/2021, 07/07/2019 DTAP/TDAP/TD VACCINES (3 - T d or Tdap) 11/20/2024 11/20/2014, 11/20/2014 ZOSTER VACCINE (3 of 3) 01/29/2025 12/04/2024, 11/20 INFLUENZA VACCINE (#1) 2025 , 04/18/2022, 05/03/2021, Additional history exists COVID-19 Vaccine ( - 2024-2 6 season) 2025 03/22/2023, 04/18/2022, 05/03/2021, Additional history exists COLORECTAL SCREENING 06/16/2026 06/16/2021, 06/13/2021, 03/15/2018, Additional history exists Colorectal Cancer Screening 06/16/2026 Pre-Diabetes and Diabetes Screening 04/04/2028 04/04/2025, 12/04/2024 [place] Preventative Visit/Annual Wellness Visit Completed 12/04/2024, 11/30/2023, 10/23/2022, Additional history exists Abdominal Aortic Aneurysm (A AA) Screening Completed 01/01/2025 Medical Devices Implanted Type Area Boiler Shop Supervisor Device Identifier Shelf Expiration Date Model / Serial / Lot Clip Hemolok [facility] [id number] - Csc - [id number] Implanted:Qty: 2 on 04/03/2025 by Belia Barrett MD at [facility] Clip Right: Abdomen TELEFLEX- WECK CLOSURE SYS 12/10/2029 [id number] / / [id number] Clip Hemolok Lrg 112020 - Csc - [id number] Implanted:Qty: 2 on 04/03/2025 by Belia Barrett MD at [facility] Clip N/A: Pelvis TELEFLEX- WECK CLOSURE SYS 12/10/2029 [id number] / / [id number] Agent Hemostat Surgicel 4x8in 1952s - [id number] Implanted:Qty: 1 on 04/03/2025 by Belia Barrett MD at [facility] Hemostatic N/A: Pelvis [employer] [id number] 08/04/2029 1952S / / [id number] Stent Contour 5eb36qu [id number] - [id number] Implanted:Qty: 1 on 12/06/2020 by Belia Barrett MD at [facility] Stent [employer]- UROLOGY/WIRE FENCE ERECTOR [id number] 09/16/2023 [id number] 230 / / [id number] Stent Tria Soft 6fr 28cm W/ Side [id number] - [id number] Implanted:Qty: 1 on 02/14/2025 by Belia Barrett MD at [facility] Stent Left: Ureter [employer]- UROLOGY/WIRE FENCE ERECTOR [id number] 09/18/2027 [id number] 240 / / [id number] Stent Tria Soft 6fr 28cm W/ Side [id number] - [id number] Implanted:Qty: 1 on 02/14/2025 by Belia Barrett MD at [facility] Stent Right: Ureter [employer]- UROLOGY/WIRE FENCE ERECTOR [id number] 09/18/2027 [id number] 240 / / [id number] Explanted Type Area Boiler Shop Supervisor Device Identifier Shelf Expiration Date Model / Serial / Lot Stent Tria Soft 6fr 28cm W/ Side [id number] - [id number] Implanted:Qty: 1 on 01/19/2025 by Belia Barrett MD at [facility] Explanted:Qty: 1 on 02/14/2025 by Belia Barrett MD at [facility] Stent Left: Ureter [employer]/WIRE FENCE ERECTOR [id number] 08/23/2027 [id number] 40 / / [id number] Stent Tria Soft 6fr 28cm W/ Side Hl [id number] - [id number] Implanted:Qty: 1 on 01/19/2025 by Bleia Barrett MD at [facility] Explanted:Qty: 1 on 02/14/2025 by Belia Barrett MD at [facility] Stent Right: Ureter [employer] UR[employer]/WIRE FENCE ERECTOR [id number] 09/05/2027 [id number] 40 / / [id number] Procedures Procedure Name Priority Date/Time Associated Diagnosis Comments XR CYSTOGRAM Routine 04/10/2025 2:24 PM CDT Urothelial cancer (CMS/HCC) POC GLUCOSE Routine 04/06/2025 8:38 AM CDT BASIC METABOLIC PANEL Routine 04/06/2025 6:11 AM CDT CBC WITH DIFFERENTIAL Routine 04/06/2025 6:11 AM CDT POC GLUCOSE Routine 04/05/2025 11:35 PM CDT POC GLUCOSE Routine 04/05/2025 7:18 PM CDT POC GLUCOSE Routine 04/05/2025 12:31 PM CDT EXTRA TUBE (LAV) Routine 04/05/2025 9:39 AM CDT EXTRA TUBE Routine 04/05/2025 9:39 AM CDT POC GLUCOSE Routine 04/05/2025 8:17 AM CDT BASIC METABOLIC PANEL Routine 04/05/2025 6:00 AM CDT CBC WITH DIFFERENTIAL Routine 04/05/2025 6:00 AM CDT POC GLUCOSE Routine 04/04/2025 8:40 PM CDT POC GLUCOSE Routine 04/04/2025 5:43 PM CDT POC GLUCOSE Routine 04/04/2025 1:10 PM CDT CREATININE, BODY FLUID Routine 8:08 AM CDT HEMOGLOBIN A1C Routine 04/04/2025 7:16 AM CDT BASIC METABOLIC PANEL Routine 04/04/2025 7:16 AM CDT CBC WITH DIFFERENTIAL Routine 04/04/2025 7:16 AM CDT VA ANESTHESIA BLOCK PB PLACEHOLDER CHARGE Routine 04/03/2025 3:29 PM CDT PATHOLOGY Pathology 04/03/2025 3:01 PM CDT Urothelial cancer (CMS/HCC) VA ANES INSERT CATH, ART, PERCUT, SHORTTERM Routine 04/03/2025 2:36 PM CDT VA ANES VNPNXR 3 YEARS/> PHYS/QHP SKILL Routine 04/03/2025 2:36 PM CDT PERIPHERAL IV ADULT Routine 04/03/2025 2 :36 PM CDT VA ANES VNPNXR 3 YEARS/> PHYS/QHP SKILL Routine 04/03/2025 2:36 PM CDT VA ANES INSERT ENDOTRACHEAL AIRWAY Routine 04/03/2025 2:34 PM CDT POC LACTIC ACID Routine 04/03/2025 2:12 PM CDT BLOOD GAS,(INCL. H+H, LYTES, GLUC) Routine 04/03/2025 2:12 PM CDT VA CYSTOURETHROSCOPY 04/03/2025 12:56 PM CDT Urothelial cancer (CMS/HCC) VA LAPAROSCOPY NEPHRECTOMY W/TOTAL URETERECTOMY 04/03/2025 12:56 PM CDT Urothelial cancer (CMS/HCC) IR INJECTION Routine 04/03/2025 12:01 PM CDT URINE CULTURE Stat 04/03/2025 11:24 AM CDT EKG 12-LEAD Routine 03/20/2025 9:21 AM CDT TYPE AND SCREEN Routine 03/20/2025 9:17 AM CDT PTT Routine 03/20/2025 9:17 AM CDT PROTIME-INR Routine 03/20/2025 9:17 AM CDT CBC WITH DIFFERENTIAL Routine 03/20/2025 9:17 AM CDT BASIC METABOLIC PANEL Routine 03/20/2025 9:17 AM CDT URINE CULTURE Routine 03/20/2025 9:17 AM CDT Dysuria PET TUMOR OR INFECTION IMG W CT SKB MDTH Routine 02/27/2025 12:04 PM CDT Urothelial cancer (CMS/HCC) XR FLUORO LESS THAN 1 HOUR Routine 02/14/2025 8:55 AM CDT PATHOLOGY Pathology 02/14/2025 7:37 AM CDT Gross hematuria History of bladder cancer CYTOLOGY, NON GYNE Pathology 02/14/2025 7: 31 AM CDT Gross hematuria History of bladder cancer VA ANES INSERT ENDOTRACHEAL AIRWAY Routine 02/14/2025 7:17 AM CDT PYELOGRAM RETROGRADE 02/14/2025 7:00 AM CDT Gross hematuria History of bladder cancer VA CYSTOURETHROSCOPY W/DEST &/RMVL TUMOR LARGE 02/14/2025 7:00 AM CDT Gross hematuria History of bladder cancer VA CYSTO W/DESTRUCTION OF LESIONS 02/14/2025 7:00 AM CDT Gross hematuria History of bladder cancer VA CYSTO W/INSERT URETERAL STENT 02/14/2025 7:00 AM CDT Gross hematuria History of bladder cancer VA URETERAL ENDOSCOPY VIA URETEROST W/WO DIL URETER 02/14/2025 7:00 AM CDT Gross hematuria History of bladder cancer URINE CULTURE Routine 02/07/2025 10:53 AM CDT UTI symptoms CT ABDOMEN PELVIS WO CONTRAST Routine 01/01/2025 11:41 AM CDT Gross hematuria COLONOSCOPY REPORT 06/16/2021 10 :25 AM TEXTBOOK ASSOCIATE from Last 3 Months or Most Recently Relevant to Health Maintenance Results * XR CYSTOGRAM (04/10/2025 2:24 PM CDT) Anatomical Region Laterality Modality Pelvis Computed Radiogr aphy 04/10/2025 2:25 PM CDT Impressions 04/10/2025 2:25 PM CDT IMPRESSION: Status post robotic assisted laparoscopic right radical nephroureterectomy with excision of right bladder cuff. There was no evidence of extraluminal extravasation of contrast from the urinary bladder. Left vesicoureteral reflux was demonstrated. FLUOROSCOPY TIME IN MINUTES: 0.5. DICTATION LOCATION: Location 1 - [facility] 04/10/2025 2:25 PM CDT XR CYSTOGRAM DATE: 04/10/2025 12:56 PM HISTORY: Status post robotic assisted laparoscopic right radical nephroureterectomy with bladder cuff (partial cystectomy). Rule out leak. Urothelial cancer (CMS/HCC) COMPARISON: None.. REFERENCE AIR KERMA DOSE: 107.504 mGy. NUMBER OF FLUOROSCOPIC IMAGES: 6 FINDINGS: An initial playground aide image was performed. Surgical clips are present superimposing the right side of the pelvis and abdomen. The patient has history of robotic assisted laparoscopic right radical nephroureterectomy with excision of right bladder cuff performed on 04/03/2025. A total of 80 cc of Cystografin was instilled into the urinary bladder by gravity via the indwelling [place] catheter during fluoroscopic observation. No extraluminal extravasation of contrast was demonstrated from the urinary bladder. Vesicoureteral reflux was demonstrated into the left ureter. Post drain images reveal a small amount of contrast remaining in the urinary bladder outlining the balloon of the [place] catheter. INCIDENTAL FINDINGS: None. Procedure Note Iqra Cohen MD - 04/10/2025 XR CYSTOGRAM DATE: 04/10/2025 12:56 PM HISTORY: Status post robotic assisted laparoscopic right radical nephroureterectomy with bladder cuff (partial cystectomy). Rule out leak. Urothelial cancer (CMS/HCC) COMPARISON: None.. REFERENCE AIR KERMA DOSE: 107.504 mGy. NUMBER OF FLUOROSCOPIC IMAGES: 6 FINDINGS: An initial playground aide image was performed. Surgical clips are present superimposing the right side of the pelvis and abdomen. The patient has history of robotic assisted laparoscopic right radical nephroureterectomy with excision of right bladder cuff performed on 04/03/2025. A total of 80 cc of Cystografin was instilled into the urinary bladder by gravity via the indwelling [place] catheter during fluoroscopic observation. No extraluminal extravasation of contrast was demonstrated from the urinary bladder. Vesicoureteral reflux was demonstrated into the left ureter. Post drain images reveal a small amount of contrast remaining in the urinary bladder outlining the balloon of the [place] catheter. INCIDENTAL FINDINGS: None. IMPRESSION: Status post robotic assisted laparoscopic right radical nephroureterectomy with excision of right bladder cuff. There was no evidence of extraluminal extravasation of contrast from the urinary bladder. Left vesicoureteral reflux was demonstrated. FLUOROSCOPY TIME IN MINUTES: 0.5. DICTATION LOCATION: Location 1 - [facility] Belia Barrett MD DIAGNOSTIC IMAGING ORDERA BLES Final Result * POC GLUCOSE (04/06/2025 8:38 AM CDT) Only the most recent of8 resultswithin the time period is included. GLUCOSE POC 89 74 - 99 mg/dL 04/06/2025 8:38 AM CDT [facility] SPECIMEN SOURCE, GLUCOSE POC Whole Blood 04/06/2025 8:38 AM CDT [facility] COMMENT, GLU POC Alerted Nurse/FRANCISCO/D r 04/06/2025 8:38 AM CDT [facility] [employer] [facility] Blood, whole 04/06/2025 8:38 AM CDT 04/06/2025 8:48 AM CDT Belia Barrett MD POINT OF CARE TESTING Fin al Result [facility] [employer] [facility]# [id number] [address] [place] [address] * (ABNORMAL) CBC WITH DIFFERENTIAL (04/06/2025 6:11 AM CDT) Only the most recent of4 resultswithin the time period is included. Pathologist [facility] WBC 6.7 4.0 - 9.8 K/uL 04/06/2025 6:50 AM T [facility] [employer] [facility] RBC 3.64(L) 4.50 - 5.40 M/uL 04/06/2025 6:50 AM T [facility] [employer] [facility] HEMOGLOBIN 10.7(L) 13.6 - 16.5 g/dL 04/06/2025 6:50 AM T [facility] [employer] [facility] HEMATOCRIT 33.6(L) 40.0 - 48.0 % 04/06/2025 6:50 AM T [facility] [employer] [facility] MCV 92.3 82.0 - 99.0 fL 04/06/2025 6:50 AM CDT [facility] [employer] [facility] MCH 29.4 27.2 - 32.6 pg 04/06/2025 6:50 AM CDT [facility] MCHC 31.8 31.5 - 35.5 g/dL 04/06/2025 6:50 AM CDT [employer] [facility] - . [facility] RDW 13.8 11.5 - 14.5 % 04/06/2025 6:50 AM CDT [facility] - [facility] RDW-STDEV 46.3 37.1 - 48.7 fL 04/06/2025 6:50 AM CDT [facility] - . [facility] PLATELETS 199 140 - 350 K/uL 04/06/2025 6:50 AM CDT [facility] - [facility] MPV 9.9 9.3 - 12.4 fL 04/06/2025 6:50 AM CDT [facility] - . [facility] NEUTROPHILS 83 % 04/06/2025 6:50 AM CDT [facility] - . [facility] LYMPHOCYTES 10 % 04/06/2025 6:50 AM CDT [facility] - . [facility] MONOCYTES 3 % 04/06/2025 6:50 AM CDT [facility] - . [facility] EOSINOPHILS 3 % 04/06/2025 6:50 AM CDT [facility] - . [facility] BASOPHILS 1 % 04/06/2025 6:50 AM CDT [facility] - . [facility] IMMATURE GRANULOCYTES 1 % 04/06/2025 6:50 AM CDT [employer] - . [facility] Comment:IG (Immature Granulo cyte) count includes Metamyelocytes, Myelocytes, and Promyelocytes NEUTROPHIL ABSOLUTE 5.54 1.90 - 7.00 K/uL 04/06/2025 6:50 AM CDT [facility] - . [facility] LYMPHOCYTE ABSOLUTE 0.67(L) 0.70 - 4.50 K/uL 04/06/2025 6:50 AM CDT [employer] - . [facility] MONOCYTE ABSOLUTE 0.20 0.10 - 1.30 K/uL 04/06/2025 6:50 AM CDT [facility] - . [facility] EOSINOPHIL ABSOLUTE 0.19 0.00 - 0.70 K/uL 04/06/2025 6:50 AM CDT [facility] - . [facility] BASOPHILS ABSOLUTE 0.04 0.00 - 0.20 K/uL 04/06/2025 6:50 AM CDT [facility] - [facility] IMMATURE GRANULOCYTES ABSOLUTE 0.04(H) 0.00 - 0.03 K/uL 04/06/2025 6:50 AM [facility] Blood Venipuncture / Unknown 04/06/2025 6:11 AM CDT 04/06/2025 6:16 AM CDT Belia Barrett MD HEMATOLOGY ORDERABLES Fin al Result [facility] [employer] [facility] CLIA# [id number] [address] [facility] [id number] * (ABNORMAL) BASIC METABOLIC PANEL (04/06/2025 6:11 AM CDT) Only the most recent of4 resultswithin the time period is included. SODIUM 138 136 - 145 mmol/L 04/06/2025 7:17 AM [facility] [employer] LABORATORY SERVICES [facility] POTASSIUM 4.1 3.5 - 5.0 mmol/L 04/06/2025 7:17 AM [facility] CHLORIDE 104 98 - 107 mmol/L 04/06/2025 7:17 AM [facility] LABORATORY SERVICES [facility] CO2 26 22 - 29 mmol/L 04/06/2025 7:17 AM [facility] [employer] [facility] CALCIUM 9.1 8.6 - 10.2 mg/dL 04/06/2025 7:17 AM [facility] LABORATORY SERVICES [facility] BUN 15 8 - 23 mg/dL 04/06/2025 7:17 AM [facility] LABORATORY SERVICES [facility] CREATININE 1.46(H) 0.67 - 1.17 mg/dL 04/06/2025 7:17 AM [facility] [employer] [facility] - [facility] Comment:The GFR result is no t clinically significant on patients <18 or >70 years of age. GLUCOSE 109(H) 74 - 99 mg/dL 04/06/2025 7:17 AM [facility] [employer] LABORATORY SERVICES [facility] GFR 51 mL/min/1.7 3 sq meter 04/06/2025 7:17 AM CDT [facility] - [facility] Comment:eGFR calculated with 2020 CKD-EPI equation. Vegetarian diet, extremely high or low muscle mass, and may affect results. Cystatin C with Glomerular Filtration Rate is a suitable alternative for these patients. ANION GAP 8 8 - 16 mmol/L 04/06/2025 7:17 AM CDT [facility] Blood Venipuncture / Unknown 04/06/2025 6:11 AM CDT 04/06/2025 6:16 AM CDT Belia Barrett MD CHEMISTRY ORDERABLES April l Result [facility] CLIA# [id number] [address], [place] [address] * EXTRA TUBE (LAV) (04/05/2025 9:39 AM CDT) Blood Venipuncture / Unknown 04/05/2025 9:39 AM CDT 04/05/2025 9:53 AM CDT External Provider [facility] HEMATOLOGY ORDERABLES Fi nal Result Performing Organization Address [facility]/ZIP Co de Phone Number [facility]# [id number] [address], [place] [address] * CREATININE, BODY FLUID (04/04/2025 8:08 AM CDT) CREATININE, FLD 1.67 mg/dL 04/04/2025 9:11 AM CDT [facility] [employer] [facility] Body fluid ENTIRE SEROUS MEMBRANE OF PERITONEUM / Unknown Collection / Unknown 04/04/2025 8:08 AM CDT 04/04/2025 8:14 AM CDT Narrative [facility] LAB[facility] - 04/04/2025 9:11 AM CDT Interpretive Criteria: Creatinine Fluid Note: Greater than 1 - 2 times serum creatinine suggests urine contamination. The reference range and other method performance specifications are unavailable for this body fluid. Comparison of this result with the concentration in the blood, serum, or plasma is recommended. Belia Barrett MD BODY FLUIDS AND STOOLS Fi nal Result Performing Organization Address [facility]/ZIP Co de Phone Number [facility] [employer] [facility]# [id number] [address] [place] [address] * (ABNORMAL) HEMOGLOBIN A1C (04/04/2025 7:16 AM CDT) HEMOGLOBIN A1C 5.8(H) <5.7 % 04/04/2025 3:25 PM CDT [facility] LAB[facility] EST. AVG GLUCOSE, A1C 120 mg/dL 04/04/2025 3:25 PM CDT [facility] Blood Venipuncture / Unknown 04/04/2025 7:16 AM CDT 04/04/2025 3:01 PM CDT Narrative [facility] - 04/04/2025 3:25 PM CDT HGB A1C INTERPRETATION NORMAL: <5.7% PRE-DIABETES: 5.7 - 6.4% DIABETES: 6.5% OR GREATER Beau Sánchez DO CHEMISTRY ORDERABLES Final Result Performing Organization Address [facility] Co de Phone Number [facility] [employer] [facility]# [id number] [address] [place] [address] * VA ANESTHESIA BLOCK PB PLACEHOLDER CHARGE (04/03/2025 3:29 PM CDT) Narrative Tiffany Tucker MD - 04/03/2025 3:29 PM CDT Tiffany Tucker MD 04/03/2025 3:31 PM TAP Block Patient location during procedure: Pre-op Start time: 04/03/2025 11:58 AM End time: 04/03/2025 12:09 PM Reason for block: at surgeon's request and post-op pain management Staffing Performed: Anesthesiologist (/) Authorized by: Tiffany Tucker MD Performed by: Tiffany Tucker MD Crane Oiler: Gilma Ratliff RN Preanesthetic Checklist Completed: patient identified, IV checked, site marked, risks and benefits discussed, surgical consent, monitors and equipment checked, pre-op evaluation and timeout performed Hand hygiene performed prior to procedure Patient was prepped and draped in usual sterile fashion Mask worn Patient position: Supine Prep: ChloraPrep Patient monitoring: Continuous pulse oximetry, Heart rate and Non-invasive blood pressure Block Region: Truncal Block Block Type: TAP Laterality: Left (bilateral) Injection technique: Single-shot [place] Identification: ultrasound guided Skin Infiltration: Lidocaine 2% (Lidocaine 2%) Local injected: Bupivacaine with epinephrine and Bupivacaine 0.25% Dexamethasone (mg): 4 Epinephrine (mcg/mL): 5 Total Volume Injected (mL): 30 Needle Needle type: Short-bevel Needle gauge: 22 G Needle length: 8 cm. Needle localization: Ultrasound guidance Nerve Stimulator or Paresthesia Response Motor response or paresthesia obtained mA ms Depth (cm) Sedation Given: Midazolam (mg): 2 Fentanyl (mcg): 50 Patient Response: Awake and Responsive to verbal stimuli Assessment Paresthesia pain: None Heart rate change: no Slow fractionated injection: yes Narrative Injections made incrementally with aspirations every (mL): 5 Events: easy and well tolerated, Image stored electronically in record and no block events Outcome: A full evaluation is pending Additional Notes I have discussed with the patient, and/or surrogate, the placement of a transverse abdominus plane block for postoperative pain management. We have discussed the risks, benefits, complications and side effects. We have also discussed alternative methods of postoperative analgesia. The patient, and/or surrogate, understands and wishes to proceed with the procedure. Heart rate and Sp02 monitored during and immediately following procedure and stable throughout. us Tiffany Tucker MD PROCEDURE/MINOR SURGICAL ORDE RABLES Final Result * PATHOLOGY (04/03/2025 3:01 PM CDT) Only the most recent of2 resultswithin the time period is included. CASE REPORT Surgical Pathology Report Case: [id number] Authorizing Provider: Belia Barrett MD Collected: 04/03/2025 03:01 PM Ordering Location: [facility] Received: 04/04/2025 06:29 AM Operating Room Pathologist: Rakesh Hopson MD Specimens: A) - Pelvic lymph nodes, right, RIGHT PELVIC LYMPH NODES B) - Kidney, right, RIGHT KIDNEY 11:44 AM [facility] FINAL DIAGNOSIS Right pelvic lymph node, excision: - Benign adipose tissue. - No lymph node or malignancy identified. 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 - Tumor invades into peripelvic fat and renal parenchyma. - Resection margins are free of tumor. - No lymphovascular invasion is identified. - Pathological staging:pT3N not assigned (no nodes submitted or found) 11:44 AM [facility] at 1144 CDT GROSS DESCRIPTION The specimens are received in two containers labeled Jody Palacio. Received in the first container, additionally labeled right pelvic lymph nodes are 2 unoriented pieces of yellow-orange, lobulated adipose tissue that are 1.7 and 3.2 cm in greatest dimension. The fat is dissected to reveal no palpable lymph nodes. The entire specimen is submitted in cassettes A1 and A2. Received in formalin in the second container additionally labeled right kidney is a 623 g, 23 x 12 x 6.5 cm kidney with surrounding perinephric fat. The yellow-orange, lobulated, focally cauterized perinephric fat is unremarkable with a 12.5 x 6 cm piece of pink, smooth tissue Gerota's fascia. An adrenal gland is not identified on the superior aspect of the perinephric fat. The hilum is sealed with lis. The lis are removed to reveal unremarkable renal artery and vein margins. There is a 20.5 cm long by 0.6 to 0.8 cm in diameter ureter. There is a 1.1 x 0.9 cm possible bladder cuff that is inked yellow. The surface of the ureter and the perinephric fat are inked blue. The ureter is opened longitudinally to reveal slightly thickened tissue around the bladder cuff. No discrete lesions are identified along the length of the ureter. The tissue is pink with a small amount of focal hemorrhage, also near the bladder cuff. The kidney is bivalved opposite the hilum to reveal the superior calyces to have an area of slightly roughened tissue that is 1.8 x 1.3 cm. A discrete lesion is not identified. The most inferior calyceal also has an area in which the tissue is slightly roughened that is 1.2 x 1 cm. No discrete lesions are identified in either calyces. The renal pelvis is pink and smooth with no evidence of tumor. The remaining calyces are opened and found to be smooth and unremarkable. The kidney parenchyma is pink-red with a cortical thickness of up to 0.8 cm. Both halves of the kidney are serially section from superior to inferior to reveal no parenchymal lesions or cysts. No tissue is taken for immunofluorescence studies as a specimen was received in formalin. Business Project Manager sections are submitted as follows: B1-en face renal artery and vein margins; B2 through B4-perpendicular sections through bladder cuff margin; B5-perpendicular section through UPJ; B6-practice representative sampling of proximal ureter; B7-practice representative sampling of mid ureter; B8-practice representative sampling of distal ureter; B9 through F69-ionl superior calyces with irregular tissue; B13 through R45-gquzsr inferior calyces with irregular tissue; H25-xvduetfg of renal sinus fat; U84-msytbv parenchyma from the middle of the kidney. [facility] 5 11:44 AM [facility] MICROSCOPIC DESCRIPTION The slides are labeled [id number] and Jody Palacio. Sections from right pelvic lymph node show benign adipose tissue. No lymph node or malignancy is identified. Sections from right kidney show high-grade papillary urothelial carcinoma invading into peripelvic fat and renal parenchyma. Extensive squamous differentiation is identified, more than 80% of the tumor. No lymphovascular invasion is identified, also shown by immunostain for CD31. Resection margins are free of in situ or invasive urothelial carcinoma. High-grade papillary urothelial carcinoma, noninvasive is identified. Renal artery shows moderate atherosclerosis. The case has been reviewed by Dr. Bowles who also agreed with the above diagnosis. 5 11:44 AM [facility] OPERATIVE PROCEDURE 1: NEPHROURETERECTOMY ROBOTIC XI 2: CYSTOURETHROSCOPY FLEXIBLE 5 11:44 AM [facility] [employer] [facility] CLINICAL INFORMATION A RIGHT PELVIC LYMPH NODES RIGHT PELVIC LYMPH NODES Urothelial cancer (CMS/HCC) [C68.9] C68.9-Urothelial cancer (CMS/HCC) 11:44 AM [facility] SYNOPTIC REPORT URETER, RENAL PELVIS: Resection URETER, RENAL PELVIS: RESECTION - All Specimens AJCC 8 - Protocol posted: 09/20/2024 SPECIMEN Procedure: Nephroureterectomy Specimen Laterality: Right TUMOR Tumor Site: Renal pelvis Histologic Type: Urothelial carcinoma, invasive (conventional) Percentages of Histologic Subtypes and Divergent Differentiations Present: Squamous differentiation: 80 % Histologic Grade: High-grade Tumor Extent: Invades beyond muscularis into periureteral fat or peripelvic fat or renal parenchyma Lymphatic and / or Vascular Invasion: Not identified Tumor Configuration: Papillary Tumor Configuration: Solid / nodule MARGINS Margin Status for Invasive Carcinoma: All margins negative for invasive carcinoma Margin Status for Carcinoma In Situ / Non-invasive Papillary Urothelial Carcinoma: All margins negative for carcinoma in situ / non-invasive papillary urothelial carcinoma REGIONAL LYMPH NODES Regional Lymph Node Status: Not applicable (no regional lymph nodes submitted or found) pTNM CLASSIFICATION (AJCC 8th Edition) Reporting of pT, pN, and (when applicable) pM categories is based on information available to the pathologist at the time the report is issued. As per the AJCC (Chapter 1, 8th Ed.) it is the managing physician's responsibility to establish the final pathologic stage based upon all pertinent information, including but potentially not limited to this pathology report. pT Category: pT3 pN Category: pN not assigned (no nodes submitted or found) ADDITIONAL FINDINGS Associated Epithelial Lesions: None identified Additional Findings: Atherosclerosis Pathologic Findings in Ipsilateral Non-neoplastic Renal Tissue: Inflammation: Mild nonspecific interstitial inflammation 11:44 AM [facility] COMMENT Special stain, immunohistochemical, and/or in situ hybridization results are interpreted with controls that demonstrate appropriate staining reactions. Note on use of immunohistochemistry reagents and in situ hybridization probes: These tests were developed and their performance characteristics determined by [facility], Department of Laboratory Medicine. It has not been cleared or approved by the U.S. Food and Drug Administration. The FDA has determined that such clearance or approval is not necessary. The test is used for clinical purposes. It should not be regarded as investigational or for research. This laboratory is certified to perform high complexity testing. Frozen section/operating room consultation, gross examination and dissection, and case sign out may have been performed in part or completely in the following laboratories: [facility], CLIA #[id number] [address] [place] [address] [id number] [address] [place] [address] [facility]/[place], CLIA #[id number] [address] [place] [address] This report was created with the [employer] voice-activated dictation system. Inherent to this system is the possibility of syntax, grammar, punctuation and other errors that could impact the interpretation of the report. If there are interpretative questions about aspects of this report, please contact the performing pathologist. 11:44 AM CDT [facility] Tissue (Pelvic lymph nodes, right) Collection / Unknown 04/03/2025 3:01 PM CDT 04/04/2025 6:29 AM CDT Comment:RIGHT PELVIC LYMPH N ODES Tissue specimen (specimen) (Kidney, right) Collection / Unknown 04/03/2025 4:47 PM CDT 04/04/2025 6:29 AM CDT Comment:RIGHT KIDNEY Belia Barrett MD PATHOLOGY/CYTOLOGY ORDERA BLES Final Result [facility] [id number] [address] [place] [id number] * VA ANES INSERT CATH, ART, PERCUT, SHORTTERM (04/03/2025 2:36 PM CDT) Narrative Romel Manning MD - 04/03/2025 2:36 PM CDT Romel Manning MD 04/03/2025 2:37 PM Arterial Line Insertion Patient location during procedure: OR Staffing Performed: Anesthesiologist (/) Authorized by: Romel Manning MD Performed by: Romel Manning MD time out called Patient was prepped and draped in usual sterile fashion Indications: hemodynamic monitoring Hand hygiene performed prior to procedure Preparation: skin prepped with 2% chlorhexidine Skin prep agent dried: skin prep agent completely dried prior to procedure Patient position: flat Location: left radial Seldinger technique used Catheter type: micropuncture kit, guidewires and dilators removed and 4 Fr Catheter Length (in.): 4 [place] Identification: palpation technique Number of attempts: 2 Successful placement: yes Assessment: blood return through port Procedure uneventful Post-procedure: line secured and dressing applied Romel Manning MD PROCEDURE/MINOR SURG ICAL ORDERABLES Final Result * VA ANES VNPNXR 3 YEARS/> PHYS/QHP SKILL (04/03/2025 2:36 PM CDT) Romel Jacobs MD - 04/03/2025 2:36 PM CDT Romel Manning MD 04/03/2025 2:36 PM Peripheral Line Insertion Date/Time: 04/03/2025 2:36 PM Staffing Performed: Anesthesiologist (/) Authorized by: Romel Manning MD Performed by: Romel Manning MD Preparation: Skin prepped with 2% chlorhexidine Skin prep agent dried: skin prep agent completely dried prior to procedure Hand hygiene: hand hygiene performed prior to procedure Location: left anterior forearm micropuncture kit used, guidewires and dilators removed and 4 Fr Number of attempts: 1 Successful placement: yes Assessment: effective initial placement and positive blood return Procedure uneventful Romel Manning MD PROCEDURE/MINOR SURG ICAL ORDERABLES Final Result * VA ANES VNPNXR 3 YEARS/> PHYS/QHP SKILL, PERIPHERAL IV ADULT (04/03/2025 2:36 PM CDT) Romel Jacobs MD - 04/03/2025 2:36 PM CDT Romel Manning MD 04/03/2025 2:36 PM Peripheral Line Insertion Date/Time: 04/03/2025 2:36 PM Staffing Performed: Anesthesiologist (/) Authorized by: Romel Manning MD Performed by: Romel Manning MD Preparation: Skin prepped with alcohol Skin prep agent dried: skin prep agent completely dried prior to procedure Location: right hand Catheter size: 18 gauge Number of attempts: 1 Successful placement: yes Assessment: effective initial placement and positive blood return Procedure uneventful Romel Manning MD PROCEDURE/MINOR SURG ICAL ORDERABLES Final Result * VA ANES INSERT ENDOTRACHEAL AIRWAY (04/03/2025 2:34 PM CDT) Narrative Romel Manning MD - 04/03/2025 2:34 PM CDT Romel Manning MD 04/03/2025 2:35 PM Airway Date/Time: 04/03/2025 2:34 PM Location: OR Plan: routine intubation Patient Identity Confirmed by: Verbally with patient and armband Airway: not difficult Staffing Performed: Anesthesiologist (/) Authorized by: Romel Manning MD Performed by: Romel Manning MD Indications and Patient Condition: Indications for Airway Management: Anesthesia Sedation Level: general anesthesia Preoxygenated: yes Patient Position: Sniffing Mask Difficulty Assessment: 2 - vent by mask + OA or adjuvant +/- NMBA Oral Airway: 100mm Plan to extubate at end of case: Yes Final Airway Details: Final Airway Type: Endotracheal airway ETT Cuffed: Yes Technique Used for Successful ETT Placement: Direct laryngoscopy Devices/Methods Used in Placement: Intubating stylet Blade Type: curved blade Blade Size: 4 Insertion Site: Oral ETT Size (mm): 8.0 Measured from: Teeth ETT to Teeth (cm): 23 Tube secured with: Tape Placement Verified by: auscultation, end tidal CO2 and chest rise Cormack-Lehane Classification: Grade IIa - partial view of glottis Number of Attempts at Approach: 1 Additional Procedure Information: atraumatic and dentition unchanged Romel Manning MD PROCEDURE/MINOR SURG ICAL ORDERABLES Final Result * POC LACTIC ACID (04/03/2025 2:12 PM CDT) LACTIC ACID POC 1.1 <=2.0 mmol/L 04/03/2025 2:12 PM CDT [facility] SPECIMEN SOURCE, GASES POC Arterial 04/03/2025 2:12 PM CDT [facility] COMMENT, GASES POC Responsible Clinical Caregiver notified 04/03/2025 2:12 PM T [facility] Blood 04/03/2025 2:12 PM CDT 04/03/2025 2:15 PM CDT Belia Barrett MD POINT OF CARE TESTING Fin al Result [facility] [employer] [facility] GARRY# [id number] [address] [place] [address] * (ABNORMAL) BLOOD GAS,(INCL. H+H, LYTES, GLUC) (04/03/2025 2:12 PM CDT) Pathologist [facility] PH BLOOD POC 7.47(H) 7.35 - 7.45 04/03/2025 2:12 PM CDT [facility] PCO2 POC 36 35 - 48 mm Hg 04/03/2025 2:12 PM CDT [facility] PO2 POC 424(H) 83 - 108 mm Hg 04/03/2025 2:12 PM CDT [facility] TCO2 (CALC) POC 27(H) 19 - 24 mmol/L 04/03/2025 2:12 PM CDT [facility] HCO3 (CALC) POC 26 22 - 26 mmol/L 04/03/2025 2:12 PM CDT [facility] O2 SATURATION POC 99(H) 94 - 98 % 04/03/2025 2:12 PM CDT [facility] BASE EXCESS POC 3 -2 - 3 mmol/L 04/03/2025 2:12 PM CDT [facility] HEMOGLOBIN POC 11.0(L) 13.6 - 16.5 g/dL 04/03/2025 2:12 PM CDT [facility] HEMATOCRIT POC 33(L) 40 - 48 % 04/03/2025 2:12 PM CDT [facility] Comment:Estimated Value GLUCOSE POC 106(H) 74 - 99 mg/dL 04/03/2025 2:12 PM CDT [facility] SODIUM POC 135(L) 136 - 145 mmol/L 04/03/2025 2:[address] [facility] POT[facility]SI[facility] POC 3.6 3.5 - 5.0 mmol/L 04/03/2025 2:12 PM [facility] CHLORIDE POC 105 98 - 107 mmol/L 04/03/2025 2:12 PM [facility] CALCIUM IONIZED POC 4.8 4.7 - 5.1 mg/dL 04/03/2025 2:12 PM [facility] O2 SATURATION CALCULATED POC 100(H) 94 - 98 % 04/03/2025 2:12 PM [facility] Comment:Calculated sO2 may b e less accurate due to the factors affecting the oxygen dissociation curve. Measured sO2 by Co-oximetry is unaffected by these factors. Clinical correlation is suggested. PH TEMP CORRECT 7.47(H) 7.35 - 7.45 04/03/2025 2:12 PM [facility] PCO2 TEMP CORRECT 36 35 - 48 mm Hg 04/03/2025 2:12 PM [facility] PO2 TEMP CORRECT 424(H) 83 - 108 mm Hg 04/03/2025 2:12 PM [facility] SPECIMEN SOURCE, GASES POC Arterial 04/03/2025 2:12 PM [facility] PATIENT'S TEMPERATURE POC 37.0 degrees 04/03/2025 2:12 PM T [facility] COMMENT, GASES POC Responsible Clinical Caregiver notified 04/03/2025 2:12 PM [facility] Blood, arterial 04/03/2025 2 :12 PM CDT 04/03/2025 2:15 PM CDT us Belia Barrett MD ABG ORDERABLES Final Res ult [facility]# [id number] [address] [place] [address] * IR INJECTION (04/03/2025 12:01 PM CDT) Narrative 04/03/2025 12:01 PM CDT Order information only. Exam was auto-finalized. us Tiffany Tucker MD IR ORDERABLES Final Result * URINE CULTURE (04/03/2025 11:24 AM CDT) Only the most recent of3 resultswithin the time period is included. CULTURE No growth at 24 hours 04/04/2025 8:46 AM CDT [facility] Urine URINE SPECIMEN OBTAINED BY CLEAN CATCH PROCEDURE / Unknown 04/03/2025 11:24 AM CDT 04/03/2025 11:24 AM CDT Belia Barrett MD MICROBIOLOGY - GENERAL OR DERABLES Final Result Performing Organization Address City/State/[facility] Co de Phone Number [facility] CLIA# [id number] [address] [place] [address] * EKG 12-LEAD (03/20/2025 9:21 AM CDT) 03/20/2025 9:21 AM CDT Narrative INTERFACE SYSTEM - 03/20/2025 9:48 AM CDT [facility] [address] [place] [address] Test Date: 2025-03-20 Pat Name: JODY PALACIO Department: 100 Room: Gender: M Commutator Inspector: James : 1955 Requested By: BELIA Clarke Order Number: [id number] Reading MD: Romel South Measurements Intervals [place] Rate: 73 P: 55 VA: 230 QRS: -53 QRSD: 153 T: 23 QT: 432 QTc: 477 Interpretive Statements SINUS RHYTHM WITH FIRST DEGREE AV BLOCK INTRAVENTRICULAR CONDUCTION DELAY [130+ ms QRS DURATION] Electronically Signed On 03-20-2025 9:48:07 CDT by Romel South Procedure Note Romel South MD - 03/20/2025 [facility] [address] , [place] [address] Test Date: 2025-03-20 Pat Name: JODY PALACIO Department: 100 Room: Gender: M Commutator Inspector: Tristinbeny : 1955 Requested By: BELIA Clarke Order Number: [id number] Reading MD: Romel South Measurements Intervals [place] Rate: 73 P: 55 VA: 230 QRS: -53 QRSD: 153 T: 23 QT: 432 QTc: 477 Interpretive Statements SINUS RHYTHM WITH FIRST DEGREE AV BLOCK INTRAVENTRICULAR CONDUCTION DELAY [130+ ms QRS DURATION] Electronically Signed On 03-20-2025 9:48:07 CDT by Romel South us Nita PINTO ECG ORDERABLES Final Result INTERFACE SYSTEM Refer to clinic/hospital department * PTT (03/20/2025 9:17 AM CDT) PTT 30.5 24.4 - 36.4 seconds 03/20/2025 10:26 AM CDT [facility] Comment: PTT Therapeutic Range: Heparin Level PTT (seconds) <0.10 units/mL <55.8 0.10 - 0.30 units/mL 55.8 - 74.3 0.30 - 0.70 units/mL* 74.3 - 111.2* 0.70 - 1.00 units/mL 111.2 - 138.9 *corresponds to therapeutic range for unfractionated heparin Blood Venipuncture / Unknown 03/20/2025 9:17 AM CDT 03/20/2025 9:46 AM CDT us Belia Barrett MD HEMATOLOGY ORDERABLES Fin al Result [facility] CLIA# [id number] [address] [place] [id number] * PROTIME-INR (03/20/2025 9:17 AM CDT) PROTIME 13.8 12.7 - 15.1 Seconds 03/20/2025 10:26 AM CDT [facility] INR 1.1 0.9 - 1.1 03/20/2025 10:26 AM CDT [facility] Blood Venipuncture / Unknown 03/20/2025 9:17 AM CDT 03/20/2025 9:46 AM CDT Narrative [facility] - [facility] - 03/20/2025 10:26 AM CDT INR Therapeutic Range: Adult: 2.0 - 3.0 for pulmonary embolism or prophylaxis against venous thrombosis or systemic embolization. 2.0 - 3.0 for patients with tissue heart valves. 2.5 - 3.5 for patients with mechanical heart valves or post [place]. Pediatric (12 years and under): 1.5 - 3.0 Although the target range in children is not well established, INR values of 1.5 - 3.0 are recommended for most patients. Higher values have been used in children with prosthetic cardiac valves and hereditary clotting disorders. (<3 days) therapeutic ranges have not been established. Belia Barrett MD HEMATOLOGY ORDERABLES Fin al Result [facility] [employer] [facility]# [id number] 5 [facility] [place] [address] * TYPE AND SCREEN (03/20/2025 9:17 AM CDT) Pathologist [facility] ABO GROUP O 03/20/2025 11:36 AM T [facility] -- [facility] RH (D) TYPE Positive 03/20/2025 11:36 AM CDT [facility] -- [facility] ANTIBODY SCREEN Negative 03/20/2025 11:36 AM CDT [facility] -- [facility] Blood Venipuncture / Unknown 03/20/2025 9:17 AM CDT 03/20/2025 9:46 AM CDT Nita Quiroz [facility] BLOOD BANK ORDERABLES Edited Result - Final [facility]# [id number] [place] [address] * PET TUMOR OR INFECTION IMG W CT SKB MDTH (02/27/2025 12:04 PM CDT) Anatomical Region Laterality Modality Positron Emissio n Tomography (PET) 02/27/2025 12:0 4 PM CDT Impressions 02/27/2025 12:22 PM CDT IMPRESSION: Negative PET exam. No obvious sites of regional adenopathy or distant metastatic disease identified. Probable prior asbestos exposure. Dictated by Dr. Tha Merrill MD DICTATION LOCATION: 02/27/2025 12:22 PM CDT PET/CT IMAGING WITH HARDWARE FUSION Initial treatment strategy DATE: 02/27/2025 12:04 PM PRIOR EXAM: CT of the abdomen and pelvis 01/01/2025. CT of the chest 01/16/2025. MRI of the abdomen 01/16/2025 HISTORY: Initial staging of recently diagnosed high-grade papillary urothelial carcinoma of the right kidney. 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 PROCEDURE: Radiopharmaceutical: 18-F FDG Injected activity: 9.06 mCi Injection site: Left antecubital vein Uptake time: 49 minutes Blood glucose: 106 mg/dL. CT scan type: Brain through mid-thigh. CT technique: Noncontrast CT for attenuation correction and anatomic localization. Axial, sagittal, coronal and MIP images reviewed. Maximal SUVs have units of MBq/mL. Aortic blood pool: SUVmax: 3.4 Hepatic parenchyma: SUVmax: 4.9 Scan quality: Excellent. FINDINGS: Significant PET/CT findings: The left renal collecting system that is obscured by normal pattern of FDG excretion. No perinephric fat stranding present. No sites of adenopathy. No hepatic or adrenal metastases. No omental pancake. No evidence for pulmonary sites of metastatic disease. No intracranial metastases identified. No PET avid osteolytic or osteoblastic skeletal metastases. Incidental PET/CT findings: Expected patterns of PET activity within brain, extraocular muscles, nasal mucosa, buccal mucosa, scattered throughout the intestines and excreted by the urinary tract. Areas of FDG negative noncalcified and calcified pleural thickening in both hemithoraces suspicious for prior asbestos exposure. Tiny calcified pulmonary nodule in the anterior segment of the right upper lobe. Focal calcifications scattered throughout the coronary arteries. The liver, spleen, pancreas and adrenal glands are normal. Bilateral ureteral stents. The bladder is decompressed. Procedure Note Tha Merrill MD - 02/27/2025 PET/CT IMAGING WITH HARDWARE FUSION Initial treatment strategy DATE: 02/27/2025 12:04 PM PRIOR EXAM: CT of the abdomen and pelvis 01/01/2025. CT of the chest 01/16/2025. MRI of the abdomen 01/16/2025 HISTORY: Initial staging of recently diagnosed high-grade papillary urothelial carcinoma of the right kidney. 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 PROCEDURE: Radiopharmaceutical: 18-F FDG Injected activity: 9.06 mCi Injection site: Left antecubital vein Uptake time: 49 minutes Blood glucose: 106 mg/dL. CT scan type: Brain through mid-thigh. CT technique: Noncontrast CT for attenuation correction and anatomic localization. Axial, sagittal, coronal and MIP images reviewed. Maximal SUVs have units of MBq/mL. Aortic blood pool: SUVmax: 3.4 Hepatic parenchyma: SUVmax: 4.9 Scan quality: Excellent. FINDINGS: Significant PET/CT findings: The left renal collecting system that is obscured by normal pattern of FDG excretion. No perinephric fat stranding present. No sites of adenopathy. No hepatic or adrenal metastases. No omental pancake. No evidence for pulmonary sites of metastatic disease. No intracranial metastases identified. No PET avid osteolytic or osteoblastic skeletal metastases. Incidental PET/CT findings: Expected patterns of PET activity within brain, extraocular muscles, nasal mucosa, buccal mucosa, scattered throughout the intestines and excreted by the urinary tract. Areas of FDG negative noncalcified and calcified pleural thickening in both hemithoraces suspicious for prior asbestos exposure. Tiny calcified pulmonary nodule in the anterior segment of the right upper lobe. Focal calcifications scattered throughout the coronary arteries. The liver, spleen, pancreas and adrenal glands are normal. Bilateral ureteral stents. The bladder is decompressed. IMPRESSION: Negative PET exam. No obvious sites of regional adenopathy or distant metastatic disease identified. Probable prior asbestos exposure. Dictated by Dr. Tha Merrill MD DICTATION LOCATION: 1 Belia Barrett MD PE ORDERABLES Final Res ult * XR FLUORO LESS THAN 1 HOUR (02/14/2025 8:55 AM CDT) Anatomical Region Laterality Modality Computed Radiogr aphy 02/14/2025 8:56 AM CDT Impressions 02/14/2025 1:34 PM CDT IMPRESSION: Fluoroscopy provided to assist procedure. DICTATION LOCATION: Location [address] [place] [address] Narrative 02/14/2025 1:34 PM CDT EXAMINATION: C-ARM FLUOROSCOPY DATE: 02/14/2025 8:55 AM HISTORY: Bilateral lithotripsy, pain COMPARISON: None FLUOROSCOPY TIME IN MINUTES: 0.7 REFERENCE AIR KERMA DOSE: 3.2 mGy FINDINGS: Fluoroscopy provided to assist bilateral lithotripsy. 20 spot images were obtained which demonstrate placement of ureteral stents. INCIDENTAL FINDINGS: None. Procedure Note Evan Zapien MD - 02/14/2025 EXAMINATION: C-ARM FLUOROSCOPY DATE: 02/14/2025 8:55 AM HISTORY: Bilateral lithotripsy, pain COMPARISON: None FLUOROSCOPY TIME IN MINUTES: 0.7 REFERENCE AIR KERMA DOSE: 3.2 mGy FINDINGS: Fluoroscopy provided to assist bilateral lithotripsy. 20 spot images were obtained which demonstrate placement of ureteral stents. INCIDENTAL FINDINGS: None. IMPRESSION: Fluoroscopy provided to assist procedure. DICTATION LOCATION: Location [address] [place] [address] Belia Barrett MD DIAGNOSTIC IMAGING ORDERA BLES Final Result * CYTOLOGY, NON GYNE (02/14/2025 7:31 AM CDT) CASE REPORT Medical Cytology Report Case: [id number] Authorizing Provider: Belia Barrett MD Collected: 02/14/2025 07:31 AM Ordering Location: [facility] for Received: 02/15/2025 07:17 AM [facility] Pathologist: Rakesh Hopson MD Specimens: A) - Bladder, Bladder urine for cytology B) - Ureter, left, left renal pelvis cytology C) - Kidney, right, Urine cytology right kidney D) - Kidney, left, Left renal pelvis brushing 5 3:12 PM T [facility] [employer] [facility] FINAL DIAGNOSIS Bladder, urine: - Suspicious for high-grade urothelial carcinoma. See microscopic description. Left renal pelvis: - Atypical urothelial cells. See microscopic description. Right kidney, urine: - Positive for high-grade urothelial carcinoma. See microscopic description. Left renal pelvis, brushing: - Atypical urothelial cells. See microscopic description. 5 3:12 PM T [facility] [employer] [facility] at 1512 CDT GROSS DESCRIPTION Received are 4 containers all labeled Jody Palacio. The first container (A) is additionally labeled bladder urine. It contains a 100 mL of slightly cloudy pink fluid. One ThinPrep made. The second container (B) is additionally labeled left renal pelvis. It contains 20 mL of clear colorless fluid. One ThinPrep made. The third container (C) is additionally labeled right kidney urine. It contains 20 mL of clear light pink fluid. One ThinPrep made. The fourth container (D) is additionally labeled left renal pelvis brushing. It holds 1 brush(s) in 20 mL of CytoLyt fluid. One ThinPrep made. 5 3:12 PM T [facility] [employer] [facility] MICROSCOPIC DESCRIPTION The slides are labeled [id number] and Jody Palacio. The ThinPrep slide from bladder urine shows rare clusters of atypical urothelial cells with high nuclear to cytoplasmic ratio, nuclear hyperchromasia and nuclear membrane irregularity, suspicious for high-grade urothelial carcinoma. The ThinPrep slide shows some clusters of urothelial cells with increased NC ratio, and nuclear hyperchromasia, that shows similar cytology to cells from right kidney urine, which may represent contamination, however a neoplastic process cannot be entirely excluded. Clinical correlation and follow-up is suggested. The ThinPrep slide shows some clusters and single highly atypical urothelial cells with high nuclear to cytoplasmic ratio, nuclear hyperchromasia and nuclear membrane irregularity, consistent with high-grade urothelial carcinoma. The ThinPrep slide shows some clusters of urothelial cells with increased NC ratio, and nuclear hyperchromasia, that shows similar cytology to cells from right kidney urine, which may represent contamination, however a neoplastic process cannot be entirely excluded. Clinical correlation and follow-up is suggested. The case has been reviewed in intradepartmental consultation. 5 3:12 PM CDT [facility] OPERATIVE PROCEDURE 1: URETEROSCOPY 2: CYSTOURETHROSCOPY URETERAL STENT EXCHANGE 3: CYSTOURETHROSCOPY BLUELIGHT WITH CYSVIEW 4: CYSTOURETHROSCOPY BLADDER TUMOR RESECTION 5: PYELOGRAM RETROGRADE 5 3:12 PM CDT [facility] CLINICAL INFORMATION Gross hematuria [R31.0] History of bladder cancer [Z85.51] R31.0-Gross hematuria Z85.51-History of bladder cancer 5 3:12 PM CDT [facility] COMMENT Special stain, immunohistochemical, and/or in situ hybridization results are interpreted with controls that demonstrate appropriate staining reactions. Note on use of immunohistochemistry reagents and in situ hybridization probes: These tests were developed and their performance characteristics determined by [facility], Department of Laboratory Medicine. It has not been cleared or approved by the U.S. Food and Drug Administration. The FDA has determined that such clearance or approval is not necessary. The test is used for clinical purposes. It should not be regarded as investigational or for research. This laboratory is certified to perform high complexity testing. Cases may have been signed out in part or completely in the following laboratories: [facility], CLIA #[id number] [address] [place] [address] [facility], CLIA #[id number] [place] [address]. 5 3:12 PM T [facility] Lesion/Drainage Fluid URINARY BLADDER STRUCTURE / Unknown Collection / Unknown 02/14/2025 7:31 AM CDT 02/15/2025 7:17 AM CDT Lesion/Drainage Fluid (Ureter, left) Collection / Unknown 02/14/2025 8:10 AM CDT 02/15/2025 7:17 AM CDT Lesion/Drainage Fluid (Kidney, right) 02/14/2025 8:23 AM CDT 02/15/2025 7:17 AM CDT Brushings (Kidney, left) 02/14/2025 8:34 AM CDT 02/15/2025 7:17 AM CDT us Belia Barrett MD PATHOLOGY/CYTOLOGY ORDERA BLES Final Result [facility]# [id number] [address] [place] [address] * VA ANES INSERT ENDOTRACHEAL AIRWAY (02/14/2025 7:17 AM CDT) Narrative Yolie Harrell CRNA - 02/14/2025 7:17 AM CDT Yolie Harrell CRNA 02/14/2025 7:25 AM Airway Date/Time: 02/14/2025 7:17 AM Location: OR Plan: routine intubation Patient Identity Confirmed by: Verbally with patient and armband Airway: not difficult Staffing Performed: BATCHER OPERATOR/CAA Authorized by: Shamar Hearn MD Performed by: Yolie Harrell CRNA Indications and Patient Condition: Indications for Airway Management: Anesthesia and airway protection Sedation Level: general anesthesia Preoxygenated: yes Patient Position: Sniffing Mask Difficulty Assessment: 2 - vent by mask + OA or adjuvant +/- NMBA (2 hands) Oral Airway: 100mm Plan to extubate at end of case: Yes Final Airway Details: Final Airway Type: Endotracheal airway ETT Cuffed: Yes Cuff Volume (mL): 5 Technique Used for Successful ETT Placement: Video laryngoscopy Devices/Methods Used in Placement: Intubating stylet Reason for advanced technique: pre-op assessment Blade Size: 3 Insertion Site: Oral ETT Size (mm): 7.0 Video Laryngoscopy Devices: GlideScope Measured from: Teeth ETT to Teeth (cm): 22 Tube secured with: Tape Placement Verified by: auscultation, end tidal CO2 and chest rise Cormack-Lehane Classification: Grade I - full view of glottis Number of Attempts at Approach: 1 Additional Procedure Information: atraumatic and dentition unchanged us Shamar Hearn MD PROCEDURE/MINOR SURGICAL ORDERA JUAN LUIS Final Result * CT ABDOMEN PELVIS WO CONTRAST (01/01/2025 11:41 AM CDT) Anatomical Region Laterality Modality Abdomen Computed Tomogra phy 01/01/2025 11:2 4 AM CDT Impressions 01/01/2025 1:54 PM CDT IMPRESSION: 1. Indeterminate and incompletely evaluated low-attenuation lesion in left hepatic lobe measuring 1.6 cm .Further evaluation with liver protocol MRI recommended. 2. Indeterminate lung nodules as detailed in the findings measuring up to 6 mm. Follow-up CT in 12 months recommended. 3. Small fat-containing left inguinal hernia. Small fat-containing umbilical hernia. DICTATION LOCATION: Location 4 Narrative 01/01/2025 1:[address] ABDOMEN AND PELVIS WITHOUT CONTRAST DATE: 01/01/2025 11:41 AM HISTORY: Gross hematuria. Gross hematuria COMPARISON: 10/02/2020 TECHNIQUE: Multislice helical imaging of the abdomen and pelvis without contrast utilizing renal stone protocol. The examination was performed with the adjustment of mA according to the patient size and/or the use of Iterative Reconstruction Technique. Please note that noncontrast imaging can provide inherently decreased conspicuity of many pathologic processes. FINDINGS: LOWER CHEST: Bibasilar atelectasis. Scarring left lung base. Indeterminate lung nodules measuring 3 mm and 6 mm (series 2 image 42, 74). Pleural calcification noted at the lung bases. Coronary artery calcifications are present. LIVER: Indeterminate and incompletely evaluated low-attenuation lesion in left hepatic lobe measuring 1.6 cm (series 2 image 177) GALLBLADDER: Unremarkable BILIARY DUCTS: Unremarkable PANCREAS: Unremarkable SPLEEN: Unremarkable ADRENAL GLANDS: Unremarkable KIDNEYS/URETERS: Incompletely evaluated subcentimeter low-attenuation lesion in the superior pole of the left kidney, similar to prior studies (series 2 image 294). Left parapelvic cyst redemonstrated. No collecting system dilatation. No renal calculi. VESSELS: Severe atherosclerotic calcifications of the abdominal aorta and branch vessels. LYMPH NODES: No pathologic lymphadenopathy. PERITONEUM/RETROPERITONEUM: No free air or free fluid. STOMACH: Unremarkable SMALL BOWEL: Unremarkable LARGE BOWEL: Scattered colonic diverticulosis in the sigmoid and descending colon. APPENDIX: Unremarkable REPRODUCTIVE ORGANS: Unremarkable URINARY BLADDER: Unremarkable ABDOMINAL/PELVIC WALL: Small fat-containing left inguinal hernia. Small fat-containing umbilical hernia. BONES: Large anterior osteophytes throughout the visualized thoracic spine. Multilevel degenerative changes throughout the thoracic and lumbar spine. ADDITIONAL: None Procedure Note Zachary Naqvi MD - 01/01/2025 CT ABDOMEN AND PELVIS WITHOUT CONTRAST DATE: 01/01/2025 11:41 AM HISTORY: Gross hematuria. Gross hematuria COMPARISON: 10/02/2020 TECHNIQUE: Multislice helical imaging of the abdomen and pelvis without contrast utilizing renal stone protocol. The examination was performed with the adjustment of mA according to the patient size and/or the use of Iterative Reconstruction Technique. Please note that noncontrast imaging can provide inherently decreased conspicuity of many pathologic processes. FINDINGS: LOWER CHEST: Bibasilar atelectasis. Scarring left lung base. Indeterminate lung nodules measuring 3 mm and 6 mm (series 2 image 42, 74). Pleural calcification noted at the lung bases. Coronary artery calcifications are present. LIVER: Indeterminate and incompletely evaluated low-attenuation lesion in left hepatic lobe measuring 1.6 cm (series 2 image 177) GALLBLADDER: Unremarkable BILIARY DUCTS: Unremarkable PANCREAS: Unremarkable SPLEEN: Unremarkable ADRENAL GLANDS: Unremarkable KIDNEYS/URETERS: Incompletely evaluated subcentimeter low-attenuation lesion in the superior pole of the left kidney, similar to prior studies (series 2 image 294). Left parapelvic cyst redemonstrated. No collecting system dilatation. No renal calculi. VESSELS: Severe atherosclerotic calcifications of the abdominal aorta and branch vessels. LYMPH NODES: No pathologic lymphadenopathy. PERITONEUM/RETROPERITONEUM: No free air or free fluid. STOMACH: Unremarkable SMALL BOWEL: Unremarkable LARGE BOWEL: Scattered colonic diverticulosis in the sigmoid and descending colon. APPENDIX: Unremarkable REPRODUCTIVE ORGANS: Unremarkable URINARY BLADDER: Unremarkable ABDOMINAL/PELVIC WALL: Small fat-containing left inguinal hernia. Small fat-containing umbilical hernia. BONES: Large anterior osteophytes throughout the visualized thoracic spine. Multilevel degenerative changes throughout the thoracic and lumbar spine. ADDITIONAL: None IMPRESSION: 1. Indeterminate and incompletely evaluated low-attenuation lesion in left hepatic lobe measuring 1.6 cm .Further evaluation with liver protocol MRI recommended. 2. Indeterminate lung nodules as detailed in the findings measuring up to 6 mm. Follow-up CT in 12 months recommended. 3. Small fat-containing left inguinal hernia. Small fat-containing umbilical hernia. DICTATION LOCATION: Location [address] ORDERABLES Final Res ult * COLONOSCOPY REPORT (06/16/2021 10:25 AM TEXTBOOK ASSOCIATE) Narrative Procedure Note Vadim Bliss MD - 06/13/2021 8:46 AM CST [facility] Patient Name: Jody Palacio Procedure Date: 06/13/2021 Date of : 1955 Age: 66 Attending MD: Vadim Bliss MD Procedure: Colonoscopy Indications: Surveillance: Personal history of adenomatous polyps on last colonoscopy > 3 years ago, Family history of colon cancer in a first-degree relative (father). Providers: Vadim Bliss MD Referring MD: Nilesh Richmond Medicines: TIVA Procedure: Informed consent was obtained for the procedure, including moderate sedation after risks were discussed. Based on the pre-procedure assessment, including review of the patient's medical history, medications, allergies, and review of systems, the patient was deemed to be an appropriate candidate for sedation. A timeout was performed. Continuous ECG monitoring, pulse oximetry, blood pressure monitoring, and direct observation were performed. The Colonoscope was introduced through the anus and advanced to the cecum, identified by appendiceal orifice and ileocecal valve. The colonoscopy was performed without difficulty. The patient tolerated the procedure well. The quality of the bowel preparation was good. Estimated Blood Loss: Estimated blood loss: none. Findings: A 3 mm polyp was found in the transverse colon. The polyp was sessile. The polyp was removed with a cold snare. Resection and retrieval were complete. A 3 mm polyp was found in the descending colon. The polyp was sessile. The polyp was removed with a cold snare. Resection and retrieval were complete. A diminutive polyp was found in the rectum. The polyp was sessile. The polyp was removed with a cold biopsy forceps. Resection and retrieval were complete. A few diverticula were noted in the descending colon. Internal hemorrhoids were found during retroflexion. The hemorrhoids were mild. Complications: No immediate complications. Estimated blood loss: None. Impression: - One 3 mm polyp in the transverse colon, removed with a cold snare. Resected and retrieved. - One 3 mm polyp in the descending colon, removed with a cold snare. Resected and retrieved. - One diminutive polyp in the rectum, removed with a cold biopsy forceps. Resected and retrieved. - Mild diverticulosis. - Internal hemorrhoids. Recommendation: - Await pathology results. - Timing of repeat colonoscopy will be based on pathology results. Further recommendations will follow once pathology is available. Vadim Bliss MD 06/13/2021 8:46:22 AM This report has been signed electronically. Number of Addenda: 0 Procedure Date: 06/13/2021 8:13:[address] [place] [address] Vadim Bliss MD GI PROCEDURE ORDERABLES Final R esult from Last 3 Months or Most Recently Relevant to Health Maintenance Insurance [employer] Medicare Part D [employer] [facility] [employer] [facility] Advance Directives For more information, please contact: [phone] * Full Code (Latest Code Status on File) Date Activated Date Inactivated Comments 04/03/2025 6:54 PM 04/06/2025 3:51 PM * Full Code Date Activated Date Inactivated Comments 04/03/2025 10:54 AM 04/03/2025 6:54 PM * Full Code Date Activated Date Inactivated Comments 02/14/2025 6:15 AM 02/14/2025 12:18 PM * Full Code Date Activated Date Inactivated Comments 01/19/2025 10:47 AM 01/19/2025 5:24 PM * Full Code Date Activated Date Inactivated Comments 06/13/2021 7:56 AM 06/13/2021 11:16 AM Care Teams Research Laboratory Specialist Relationship Specialty Start Date End Date Mihir Kemal DO Jody [id number] [phone] PCP - General 04/09/25
--- OUTSIDE RECORDS SUMMARY | 2025-05-10 17:55 | XMS_ITS | Encounter Summary ---
Author Organization [facility] Address 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 [place] [address] Panchito Barrett MD [address] [facility] [address] [place] [address] 09/28/2025 10:20 AM CDT Office Visit [facility] Urology at the [facility] [address] [place] [address] Panchito Barrett MD [address] [facility] [address] [place] [address] 12/05/2025 9:30 AM CDT Office Visit [facility] Internal Medicine Alva García [address] [place] [address] [place] [address] [place] [phone] documented as of this encounter Visit Diagnoses Not on filedocumented in this encounter Care Teams Coal Drier Operator Relationship Specialty [place] [address] [place] [phone] PCP - General 04/09/25 documented as of this encounter
--- OUTSIDE RECORDS SUMMARY | 2025-05-10 17:55 | XMS_ITS ---
Author Organization [email or web address] Address [address] [place] [address] Care Team Providers Care Landscaping Supervisor Name Role Phone Kemal Ash DO Primary Care Provide r Active Problems Problem Noted Date Diagnosed Date Urothelial cancer 04/05/2025 Hyperglycemia 04/04/2025 KELLY (acute kidney injury) 04/04/2025 History of bladder cancer 09/14/2022 High cholesterol 05/10/2015 Essential hypertension, benign 11/20/2014 Current Treatment and Therapy Plans No current plan information found. Past Treatment and Therapy Plans No past plan information found. 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
== END 2025-05-10 09:19 | disposition home or self-care (01) ==
LOC: ANHLAB 09:18
PROVIDERS: Visit Provider Internal Medicine Hematology & Oncology
DX: D64.9 Anemia, unspecified (principal)
CPT/HCPCS: 36415; 80053; 82607; 82728; 82746; 83540; 83550; 84238; 85025

== ENCOUNTER 2025-06-25 00:59 | Day surgery (SDC) | payer MEDICARE, SELFPAY ==
[2025-06-20 13:11] VITALS: BMI 36.3
--- NOTE | 2025-06-20 13:23 | PC.NURSE ---
[facility] has started construction of its new state of the art ER which will open Spring 2026. With this, we anticipate parking may be a challenge for some our surgical patients and families. Parking spaces are limited but are available for all Surgical, obstetrics, and ER patients sharing this lot. If you arrive and find you are having a hard time finding a parking space, please note that we understand the challenges, please drive around the hospital and park near Hospital Entrance 1. When you enter this entrance, you can ask a volunteer to direct or take you back to the surgical waiting area to check in. We appreciate everyone?s understanding of these expected challenges while we build for your future. Report to the Outpatient Waiting Room, entrance under the green pavilion located off [address], at time ___08:30am____ on date __06/25/25 . Planned Procedure Time: __10:30am .? Time changes happen often and if your time is changed the preop area will call you the afternoon before. - You and your visitor will be asked to self-screen and do not enter if you have any COVID symptoms. Please call surgeon if you need to reschedule. - A mask is optional within the hospital at this time. Patients may have clear liquids (water, carbonated beverages, clear teas, apple juice) until 3 hours prior to surgery with a maximum of 20 ounces. - No food from midnight until time of surgery and no smoking, or chewing tobacco (or any form of nicotine). No chewing gum, candy or mints. (07:30am) Take only the following medications with a SIP of water on the morning of surgery: NONE DO NOT STOP ANY OF YOUR OTHER PRESCRIPTION MEDICATIONS PRIOR TO SURGERY EXCEPT THE FOLLOWING Hold all vitamins and supplements for 3 days per anesthesiologist. Medications to discontinue per physician NONE Date to take last dose NONE Please no make-up, nail danish, hairspray, perfume, deodorant, or body powder the day of surgery.? No jewelry (including any body piercings) or valuables the day of surgery, leave them at home.? Please take a shower or bath the night before, or the morning of, surgery with an antibacterial soap.? Wear comfortable, loose fitting clothing.? - Jewelry must be removed prior to entering the operating room.? Rings and piercings that are not removed may be cut off. - The hospital will not accept responsibility for valuables.? - Please leave all valuables, including medications, at home the day of surgery. If you are going home after surgery, a licensed solo truck driver must drive you home.? - NO public transportation without another adult if you receive anesthesia. - We recommend that an adult stay with you for 24 hours following discharge. - We also recommend that you do not drive, make important decision, drink alcoholic beverages, or take any drugs that were not prescribed by your health care provider for at least 24 hours after your discharge time. Follow any additional instructions given to you from your surgeon. Telephone instructions given to ___Patient and asked if any additional questions and then verbalized understanding. Patient advised to call surgeon office or pre surgery nurse liaison [phone] if any additional questions.
[2025-06-25] VITALS (7 sets, daily range): BP systolic 120–145; BP diastolic 61–89; PULSE 77–108; RESP 12–20; TEMP 36.4; O2SAT 98–100; BMI 36.6
--- NOTE | ~2025-06-25 | XR_ITS ---
XR fl guide central line place Indication: Portacatheter insertion TECHNIQUE: Fluoroscopy used during portacatheter insertion performed by [Gary Sheikh MD] on 06/25/2025. 44 seconds of fluoroscopy time with one fluoroscopic images captured. FINDINGS: Correlate with procedure note. Single limited view of the right upper chest demonstrates a central venous catheter, tip presumably in the SVC. IMPRESSION: Fluoroscopy used during portacatheter insertion. Reviewed, dictated and finalized at location O. [employer]
--- NOTE | ~2025-06-25 | XR_ITS ---
EXAMINATION: XR chest port-a-cath/central DATE: 06/25/2025 12:14 INDICATION: Port catheter insertion TECHNIQUE: frontal view of the chest was obtained. COMPARISON: None FINDINGS: Right subclavian central venous port catheter with distal tip at the caudal superior vena cava. No focal airspace opacities, pulmonary edema, pleural effusion or pneumothorax. The cardiomediastinal silhouette is normal. Mild thoracic spondylosis with bridging osteophytes at multiple levels consistent w ith diffuse idiopathic skeletal hyperostosis (DISH). IMPRESSION: Right subclavian central venous port catheter with distal tip at the caudal superior vena cava. No acute cardiopulmonary disease. Reviewed, dictated and finalized at location A. CH ARTIST IMPRESSION: Right subclavian central venous port catheter with distal tip at the caudal sup erior vena cava. No acute cardiopulmonary disease.
--- OUTSIDE RECORDS SUMMARY | 2025-06-25 01:03 | XMS_ITS | Encounter Summary ---
Author Organization [facility] Address [address] [place] [address] Care Team Providers Care Drafter Name Role Phone Kemal Ash DO Primary Care Provide r Reason for Referral * CT Scan (Routine) - Closed Specialty Diagnoses / Procedures Referred By Contjenn sol Referred To Contact Diagnoses Lung nodule Procedures CT CHEST WO CONTRAST Nilesh Richmond MD Phone: tel: fax: [facility] CT Scan [address] [address] Phone: tel: fax: Referral ID Status Reason Start Date Expiration Date Visits Re quested Visits Authorized [id number] Closed 01/16/2025 03/17/2025 1 1 Reason for Visit * Reason Comments Needs Orders Written Encounter Details Date Type Department Care Team (Late st Contact Info) Description 01/03/2025 Telephone [facility] Internal Medicine Alva Ricky [address] [facility] [address] [place] [address] Nilesh Richmond MD [address] [place] [address] Needs Orders Written Social History Tobacco Use [...] on file 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 Barrett office. They [...] office. Contacted the office Dr. Barrett, received [employer], [email or web address] message for [employer] to let us know. * Telephone Encounter - Pippa Agosto - 01/03/2025 10:13 AM CDT Copied from [facility] #[id number]. 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 Procedure visit [facility] Urology at the [facility] Medicine [address] [place] [phone] Panchito Barrett MD [address] [address] 09/28/2025 10:20 AM CDT Office Visit [facility] Urology at the [facility] Medicine [address] [place] [phone] Panchito Barrett MD [address] [address] 12/05/2025 9:30 AM CDT Office Visit [facility] Internal Medicine Alva García [address] [facility] [address] [place] [address] [place] [address] [facility] [address] [place] [address] documented as of this encounter Results [...] multivessel coronary calcifications. DICTATION LOCATION: Location 1 [facility] 01/16/2025 12:44 PM CDT EXAMINATION: CT CHEST [...] are seen. INCIDENTAL FINDINGS: None. Procedure Note FranciszurdoKobi, DO - 01/16/2025 EXAMINATION: CT CHEST WO [...] coronary calcifications. DICTATION LOCATION: Location 1 - [facility] us Nilesh Richmond MD CT ORDERABLES Final Resu lt documented in this encounter Visit Diagnoses Diagnosis Lung nodule- Primary Solitary pulmonary nodule Lung nodule Solitary pulmonary nodule documented in this encounter Care Teams Drafter Relationship Specialty [place] [address] [facility] [address] [place] [address] PCP - General 04/09/25 documented as of this encounter
--- OUTSIDE RECORDS SUMMARY | 2025-06-25 01:03 | XMS_ITS | Encounter Summary ---
Author Organization [facility] [employer] Address [address] [place] [address] Care Team Providers Care Speeder Machine Operator Name Role Phone Kemal Ash DO Primary Care Provide r Encounter Details Date Type Department Care Team (Late st Contact Info) Description 06/25/2025 Orders Only [facility] Oncology and Hematology - Prabhjot [address] [facility] [address] [place] [address] Jay Ayala MD [address] [facility] [address] [place] [address] Carcinoma of right renal pelvis (CMS/HCC) Social History Tobacco Use Types Packs/Day Years [...] on file 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 Gender Identity Not on file Sexual Orientation Not on file documented as of this encounter Plan of Treatment Upcoming Encounters Date Type Department Care Team (Late st Contact Info) Description 07/23/2025 9:45 AM SURVEILLANCE SYSTEMS ENGINEER Office Visit [facility] Oncology and Hematology - Prabhjot [address] [facility] [address] [place] [address] Jay Ayala MD [address] [facility] [address] [place] [address] 07/27/2025 9:10 AM SURVEILLANCE SYSTEMS ENGINEER Procedure visit [facility] Urology at the [facility] Medicine [address] [place] [phone] Panchito Barrett MD [address] [address] 09/28/2025 10:20 AM CDT Office Visit [facility] Urology at the [facility] [address] [place] [phone] Panchito Barrett MD [address] [address] 12/05/2025 9:30 AM CDT Office Visit [facility] Internal Medicine Al[place] Ricky [address] [facility] [address] [place] [address] [place] [address] [facility] [address] [place] [address] documented as of this encounter Visit Diagnoses Diagnosis Carcinoma of right renal pelvis (CMS/HCC) documented in this encounter Care Teams Speeder Machine Operator Relationship Specialty [place] [address] [facility] [address] [place] [phone] PCP - General 04/09/25 documented as of this encounter
--- OUTSIDE RECORDS SUMMARY | 2025-06-25 01:03 | XMS_ITS | Clinical Summary ---
Author Organization [facility] [facility] Address [address] [place] [address] Care Team Providers Care Fretted Instruments Inspector Name Role Phone Kemal Ash DO Primary Care Provide r Allergies No known active allergies Medications aspirin (ECOTRIN EC) 81 mg Tablet, Delayed Release (E.C.) Take 81 mg by mouth daily. Active hydroCHLOROthiazide 25 mg tabletIndications:Un controlled hypertension TAKE 1 TABLET(25 MG) BY MOUTH DAILY 100 Tablet 3 5 Active fenofibrate nanocrystallized (TRICOR) 145 mg tablet TAKE 1 TABLET(145 MG) BY MOUTH DAILY 100 Tablet 3 5 Active ondansetron (ZOFRAN ODT) 8 mg Tablet, Rapid DissolveIndications: Carcinoma of right renal pelvis (CMS/HCC) Dissolve 1 tablet on top of tongue then swallow with saliva every 8 hours as needed for nausea or vomiting 30 Tablet 1 5 Active simvastatin (ZOCOR) 40 mg tabletIndications:Hi gh cholesterol TAKE 1 TABLET(40 MG) BY MOUTH IN THE EVENING 90 Tablet 3 5 Active losartan (COZAAR) 50 mg tabletIndications:Es sential hypertension, benign TAKE 1 TABLET(50 MG) BY MOUTH DAILY 90 Tablet 3 5 Active Active Problems Problem Noted Date Diagnosed Date Urothelial cancer 04/05/2025 Hyperglycemia 04/04/2025 KELLY (acute kidney injury) 04/04/2025 History of bladder cancer 09/14/2022 High cholesterol 05/10/2015 Essential hypertension, benign 11/20/2014 Resolved Problems Problem Noted Date Diagnosed Date Resolved Date Malignant neoplasm of pin worker ior wall of urinary bladder 01/27/2021 09/14/2022 Other and unspecified hyperlipidemia 12/13/2014 05/10/2015 Encounters Date Type Department Care Team Description 06/25/2025 Orders Only [facility] Oncology and Hematology - [address] [place] [phone] Jay yAala MD Carcinoma of right renal pelvis ([facility]/HCC) 06/19/2025 External Device Data STL ABSTRACTION Provider, Abstract 06/18/2025 9:00 AM BREAD AND PASTRY BAKER Office Visit [facility] Oncology and Hematology - [address] [place] [phone] Jay Ayala MD Carcinoma of right renal pelvis ([facility]/HCC) 06/18/2025 Orders Only [facility] Oncology and Hematology - [address] [place] [phone] Jay Ayala MD 06/14/2025 Orders Only [facility] Oncology and Hematology - [address] [place] [phone] Jay Ayala MD 06/12/2025 External Device Data STL ABSTRACTION Provider, Abstract 06/11/2025 Orders Only [facility] Oncology and Hematology - [address] [place] [phone] Jay Ayala MD Carcinoma of right renal pelvis ([facility]/HCC) 06/04/2025 Orders Only [facility] Oncology and Hematology - [address] [place] [address] Jay Ayala MD Carcinoma of right renal pelvis ([facility]/HCC) 05/29/2025 Orders Only [facility] Oncology and Hematology - [address] [place] [phone] Jay Ayala MD 05/28/2025 Orders Only [facility] Oncology and Hematology [facility] [address] [place] [address] Jay Ayala MD 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) 05/22/2025 External Device Data STL ABSTRACTION Provider, Abstract 05/22/2025 Orders Only [facility] Oncology and Hematology [address] [place] [phone] Jay Ayala MD 05/21/2025 Orders Only [facility] Oncology and Hematology [facility] [address] [place] [phone] Jay Ayala MD 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) 05/18/2025 Abstract [facility] Oncology and [facility]emat[facility] [address] [place] [address] Jay Ayala MD 05/16/2025 [facility] Internal Medicine [facility] [address] [place] [phone] Nilesh Richmond MD High cholesterol; Essential hypertension, benign 05/15/2025 Orders Only [facility] Oncology and Hematology [facility] [address] [place] [phone] Jay Ayala MD 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) 05/11/2025 Orders Only [facility] Oncology and Hematology [facility] [address] [place] [phone] Jay Ayala MD 05/10/2025 8:30 AM BREAD AND PASTRY BAKER Office Visit [facility] Oncology and Hematology [facility] [address] [place] [phone] Jay Ayala MD 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); Chronic anemia 05/09/2025 External Device Data STL ABSTRACTION Provider, Abstract 05/08/2025 External Device Data STL ABSTRACTION Provider, Abstract 05/08/2025 External Device Data STL ABSTRACTION Provider, Abstract 05/04/2025 2:30 PM CDT Office Visit [facility] Oncology and Hematology [facility] [address] [place] [address] George Moya MD 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); History of bladder cancer; S/p nephrectomy; Treatment plan provided; Health education/counseling 04/24/2025 12:00 PM CDT Office Visit [facility] Urology at the [facility] [address] [place] [address] Panchito Barertt MD Urothelial cancer ([facility]/HCC) (Primary Dx) 04/16/2025 9:00 AM CDT Clinical Support [facility] Urology at the [facility] [address] [place] [address] History of bladder cancer (Primary Dx) 04/10/2025 12:01 PM CDT - 04/10/2025 11:59 PM CDT Hospital Encounter [facility] [address] [place] [address] Panchito Barrett MD Discharge Disposition: Home or Self Care 04/10/2025 External Device Data STL ABSTRACTION Provider, Abstract 04/10/2025 External Device Data STL ABSTRACTION Provider, Abstract 04/10/2025 External Device Data STL ABSTRACTION Provider, Abstract 04/10/2025 Results Follow-Up [facility] Urology at the [place] [address] [place] [address] Panchito Barrett MD PATHOLOGY 04/03/2025 3:27 PM CDT Anesthesia Event [facility] Operating Room [address] [place] [address] Tiffany Tucker MD 04/03/2025 1:13 PM CDT Anesthesia Event [facility] Operating Room [address] [place] [address] Romel Manning MD Turnbough, Christopher J, PA 04/03/2025 12:56 PM CDT - 04/03/2025 5:47 PM CDT Surgery [facility] Operating Room [address] [place] [address] Panchito Barrett MD NEPHROURETERECTOMY ROBOTIC XI 04/03/2025 9:42 AM CDT - 04/06/2025 1:35 PM CDT Hospital Encounter [facility] Trauma and Surgery [address] [place] [address] Panchito Barrett MD History of bladder cancer Discharge Disposition: Home or Self Care from Last 3 Months Immunizations Immunization Administration Dates Next Due (ADACEL/BOOSTRIX)(10 YR UP) TDAP VACCINE, 0.5ML, IM 11/20/2014,11/20/2014 (CARRIE) COVID-19 VACCINE - EMERGENCY USE AUTHORIZATION, AD26,COV2S(PF) 0.5 ML IM SUSP 05/03/2021,09/12/2020 (PFIZER)(12 YR UP) COVID-19 VACCINE - EMERGENCY USE AUTHORIZATION, MRNA, [id number](PF) 30 MCG/0.3 ML IM SUSP 03/22/2023,04/18/2022 (PNEUMOVAX [...] on file Legal Sex Male 4:39 AM BREAD AND PASTRY BAKER Gender Identity Not on file Sexual Orientation Not on file Last Filed Vital Signs Vital Sign Reading Time Taken Comments Blood Pressure 142/75 06/18/2025 9:11 AM BREAD AND PASTRY BAKER Pulse 104 06/18/2025 9:01 AM BREAD AND PASTRY BAKER Temperature 36.8 C (98.2 F) 06/18/2025 9:01 AM BREAD AND PASTRY BAKER Respiratory Rate 16 06/18/2025 9:01 AM BREAD AND PASTRY BAKER Oxygen Saturation 94% 06/18/2025 9:01 AM BREAD AND PASTRY BAKER Inhaled Oxygen Concentration - - Weight 115.8 kg (255 lb 3.2 oz) 06/18/2025 9:01 AM BREAD AND PASTRY BAKER Height 177.8 cm (5' 10) 05/04/2025 1:40 PM CDT Body Mass Index 36.62 05/04/2025 1:40 PM CDT Plan of Treatment Upcoming Encounters Date Type Department Care Team (Late st Contact Info) Description 07/23/2025 9:45 AM BREAD AND PASTRY BAKER Office Visit [facility] Oncology and Hematology - [place] [address] [place] [phone] Jay Ayala MD [address] [place] [phone] 07/27/2025 9:10 AM BREAD AND PASTRY BAKER Procedure visit [facility] Urology at the [facility] Medicine [address] [place] [address] Panchito Barrett MD [address] [place] [address] 09/28/2025 10:20 AM CDT Office Visit [facility] Urology at the [facility] [address] [place] [address] Panchito Barrett MD [address] [place] [address] 12/05/2025 9:30 AM CDT Office Visit [facility] Internal Medicine [place] García [address] [place] [address] [place] [address] [place] [address] Health Maintenance Due Date Last Done [...] 01/29/2025 12/04/2024, 11/20 INFLUENZA VACCINE (#1) 2025 3, 04/18/2022, 05/03/2021, Additional history exists COVID-19 Vaccine (2024-2 6 season) 2025 03/22/2023, 04/18/2022, 05/03/2021, Additional history exists COLORECTAL SCREENING 06/16/2026 06/16/2021, 06/13/2021, 03/15/2018, Additional history exists Colorectal Cancer Screening 06/16/2026 Preventative Visit- Commercial Completed 0 12/04/2024, 11/30/2023, 10/23/2022, Additional history exists Abdominal Aortic Aneurysm (A AA) Screening Completed 01/01/2025 Medical Devices Implanted Type Area Physics Tutor Device Identifier Shelf Expiration Date Model / Serial / Lot Clip Hemolok Lr [id number] - Csc - [id number] Implanted:Qty: 2 on 04/03/2025 by Panchito Barrett MD at [facility] Clip Right: Abdomen TELEFLEX- WECK CLOSURE SYS 12/10/2029 [id number] / / [id number] Clip Hemolok Lr [id number] - Csc - [id number] Implanted:Qty: 2 on 04/03/2025 by Panchito Barrett MD at [facility] Clip N/A: Pelvis TELEFLEX- WECK CLOSURE SYS 12/10/2029 [id number] / / [id number] Agent Hemostat Surgicel 4x8in 1952s - [id number] Implanted:Qty: 1 on 04/03/2025 by Panchito Barrett MD at [facility] Hemostatic N/A: Pelvis [employer] [id number] 08/04/2029 1952S / / [id number] Stent Contour [id number] - [id number] Implanted:Qty: 1 on 12/06/2020 by Panchito Barrett MD at [facility] Stent [employer]- UROLOGY/HAMPER MAKER MACHINE [id number] 09/16/2023 [id number] 230 / / [id number] Stent Tria Soft 6fr 28cm W/ Side Hl [id number] - [id number] Implanted:Qty: 1 on 02/14/2025 by Panchito Barrett MD at [facility] Stent Left: Ureter [employer]- UROLOGY/HAMPER MAKER MACHINE [id number] 09/18/2027 [id number] 240 / / [id number] Stent Tria Soft 6fr 28cm W/ Side [id number] - [id number] Implanted:Qty: 1 on 02/14/2025 by Panchito Barrett MD at [facility] Stent Right: Ureter [employer] UROLOGY/HAMPER MAKER MACHINE [id number] 09/18/2027 [id number] 240 / / [id number] Explanted Type Area Physics Tutor Device Identifier Shelf Expiration Date Model / Serial / Lot Stent Tria Soft 6fr 28cm W/ Side [id number] - [id number] Implanted:Qty: 1 on 01/19/2025 by Panchito Barrett MD at [facility] Explanted:Qty: 1 on 02/14/2025 by Panchito Barrett MD at [facility] Stent Left: Ureter [employer] UROLOGY/HAMPER MAKER MACHINE [id number] 08/23/2027 [id number] 40 / / [id number] Stent Tria Soft 6fr 28cm W/ Side [id number] - [id number] Implanted:Qty: 1 on 01/19/2025 by Panchito Barrett MD at [facility] Explanted:Qty: 1 on 02/14/2025 by Panchito Barrett MD at [facility] Stent Right: Ureter [employer]- UROLOGY/HAMPER MAKER MACHINE [id number] 09/05/2027 [id number] 40 / / [id number] Procedures Procedure Name Priority Date/Time Associated Diagnosis Comments COMPREHENSIVE METABOLIC PANEL Routine 06/18/2025 12:42 PM BREAD AND PASTRY BAKER COMPREHENSIVE METABOLIC PANEL Routine 06/11/2025 12:39 PM BREAD AND PASTRY BAKER CBC WITH AUTODIFFERENTIAL Routine 2024 4:14 PM BREAD AND PASTRY BAKER COMPREHENSIVE METABOLIC PANEL Routine 05/28/2025 11:01 AM BREAD AND PASTRY BAKER COMPREHENSIVE METABOLIC PANEL Routine 05/21/2025 11:20 AM BREAD AND PASTRY BAKER CHG SOLUBLE TRANSFERRIN RECEPTOR Routine 05/10/2025 2:26 PM BREAD AND PASTRY BAKER CBC WITH AUTODIFFERENTIAL Routine 2024 1:40 PM BREAD AND PASTRY BAKER COMPREHENSIVE METABOLIC PANEL Routine 05/10/2025 1:07 PM BREAD AND PASTRY BAKER XR CYSTOGRAM Routine 04/10/2025 2:24 PM CDT [...] WITH DIFFERENTIAL Routine 04/04/2025 7:16 AM CDT SC ANESTHESIA BLOCK PB PLACEHOLDER CHARGE Routine 04/03/2025 3:29 PM CDT PATHOLOGY Pathology 04/03/2025 3:01 PM CDT Urothelial cancer (CMS/HCC) SC ANES INSERT CATH, ART, PERCUT, SHORTTERM Routine 04/03/2025 2:36 PM CDT SC ANES VNPNXR 3 YEARS/> PHYS/QHP SKILL Routine 04/03/2025 2:36 PM CDT PERIPHERAL IV ADULT Routine 04/03/2025 2 :36 PM CDT SC ANES VNPNXR 3 YEARS/> PHYS/QHP SKILL Routine 04/03/2025 2:36 PM CDT SC ANES INSERT ENDOTRACHEAL AIRWAY Routine 04/03/2025 2:34 PM CDT POC LACTIC ACID Routine 04/03/2025 2:12 PM CDT BLOOD GAS,(INCL. H+H, LYTES, GLUC) Routine 04/03/2025 2:12 PM CDT SC CYSTOURETHROSCOPY 04/03/2025 12:56 PM CDT Urothelial cancer (CMS/HCC) SC LAPAROSCOPY NEPHRECTOMY W/TOTAL URETERECTOMY 04/03/2025 12:56 PM CDT Urothelial cancer (CMS/HCC) IR INJECTION Routine 04/03/2025 12:01 PM CDT URINE CULTURE Stat 04/03/2025 11:[address] ABDOMEN PELVIS WO CONTRAST Routine 01/01/2025 11:41 AM CDT Gross hematuria COLONOSCOPY REPORT 06/16/2021 10 :25 AM BREAD AND PASTRY BAKER from Last 3 Months or Most Recently Relevant to Health Maintenance Results * COMPREHENSIVE METABOLIC PANEL (06/18/2025 12:42 PM BREAD AND PASTRY BAKER) Only the most recent of5 resultswithin the time period is included. Blood us Jay Ayala MD CHEMISTRY ORDERABLES Final Resu lt * CBC WITH AUTODIFFERENTIAL (05/28/2025 4:14 PM BREAD AND PASTRY BAKER) Only the most recent of2 resultswithin the time period is included. Blood us Jay Ayala MD HEMATOLOGY ORDERABLES Final Res ult * CHG SOLUBLE TRANSFERRIN RECEPTOR (05/10/2025 2:26 PM BREAD AND PASTRY BAKER) us Jay Ayala MD CHG - LABORATORY Final Result * XR CYSTOGRAM (04/10/2025 2:24 PM CDT) [...] MINUTES: 0.5. DICTATION LOCATION: Location 1 - [facility] Narrative 04/10/2025 2:25 PM CDT XR CYSTOGRAM DATE: 04/10/2025 12:56 PM HISTORY: Status post robotic assisted laparoscopic right radical nephroureterectomy with bladder cuff (partial cystectomy). Rule out leak. Urothelial cancer (CMS/HCC) COMPARISON: None.. REFERENCE AIR KERMA DOSE: 107.504 mGy. NUMBER OF FLUOROSCOPIC IMAGES: 6 FINDINGS: An initial drawstring knotter image was performed. Surgical clips are present [...] OF FLUOROSCOPIC IMAGES: 6 FINDINGS: An initial drawstring knotter image was performed. Surgical clips are present [...] MINUTES: 0.5. DICTATION LOCATION: Location 1 - [facility] us Panchito Barrett MD DIAGNOSTIC IMAGING ORDERA BLES Final Result * POC GLUCOSE (04/06/2025 8:38 AM CDT) Only the most recent of8 resultswithin the time period is included. Pathologist [facility] GLUCOSE POC 89 74 - 99 mg/dL 04/06/2025 8:38 AM CDT [facility] [employer] [facility] SPECIMEN SOURCE, GLUCOSE POC Whole Blood 04/06/2025 8:38 AM CDT [facility] [employer] [facility] COMMENT, GLU POC Alerted Nurse/FRANCISCO/D r 04/06/2025 8:38 AM CDT [facility] [employer] [facility] Blood, whole 04/06/2025 8:38 AM CDT 04/06/2025 8:48 AM CDT Panchito Barrett MD POINT OF CARE TESTING [facility] al Result [facility]# [id number] [address] [place] [address] * (ABNORMAL) CBC WITH DIFFERENTIAL (04/06/2025 6:11 AM CDT) Only the most recent of3 resultswithin the time period is included. Pathologist [facility] WBC 6.7 4.0 - 9.8 K/uL 04/06/2025 6:50 AM T [facility] RBC 3.64(L) 4.50 - 5.40 M/uL 04/06/2025 6:50 AM T [facility] HEMOGLOBIN 10.7(L) 13.6 - 16.5 g/dL 04/06/2025 6:50 AM [facility] [employer] [facility] HEMATOCRIT 33.6(L) 40.0 - 48.0 % 04/06/2025 6:50 AM T [facility] [employer] [facility] MCV 92.3 82.0 - 99.0 fL 04/06/2025 6:50 AM CDT [facility] [employer] [facility] MCH 29.4 27.2 - 32.6 pg 04/06/2025 6:50 AM CDT [facility] MCHC 31.8 31.5 - 35.5 g/dL 04/06/2025 6:50 AM CDT [facility] - . [facility] RDW 13.8 11.5 - 14.5 % 04/06/2025 6:50 AM CDT [facility] - . [facility] RDW-STDEV 46.3 37.1 - 48.7 fL 04/06/2025 6:50 AM CDT [facility] - . [facility] PLATELETS 199 140 - 350 K/uL 04/06/2025 6:50 AM CDT [facility] - . [facility] MPV 9.9 9.3 - 12.4 fL 04/06/2025 6:50 AM CDT [facility] - . [place] NEUTROPHILS 83 % 04/06/2025 6:50 AM CDT [facility] - . [facility] LYMPHOCYTES 10 % 04/06/2025 6:50 AM CDT [facility] MONOCYTES 3 % 04/06/2025 6:50 AM CDT [facility] - . [facility] EOSINOPHILS 3 % 04/06/2025 6:50 AM CDT [facility] - . [facility] BASOPHILS 1 % 04/06/2025 6:50 AM CDT [facility] - . [facility] IMMATURE GRANULOCYTES 1 % 04/06/2025 6:50 AM CDT [facility] - . [facility] Comment:IG (Immature Granulo cyte) count includes Metamyelocytes, Myelocytes, and Promyelocytes NEUTROPHIL ABSOLUTE 5.54 1.90 - 7.00 K/uL 04/06/2025 6:50 AM CDT [facility] - . [facility] LYMPHOCYTE ABSOLUTE 0.67(L) 0.70 - 4.50 K/uL 04/06/2025 6:50 AM CDT [facility] - . [facility] MONOCYTE ABSOLUTE 0.20 0.10 - 1.30 K/uL 04/06/2025 6:50 AM CDT [facility] - . [place] EOSINOPHIL ABSOLUTE 0.19 0.00 - 0.70 K/uL 04/06/2025 6:50 AM CDT [facility] - . [facility] BASOPHILS ABSOLUTE 0.04 0.00 - 0.20 K/uL 04/06/2025 6:50 AM CDT [facility] - . [facility] IMMATURE GRANULOCYTES ABSOLUTE 0.04(H) 0.00 - 0.03 K/uL 04/06/2025 6:50 AM T [facility] Blood Venipuncture / Unknown 04/06/2025 6:11 AM CDT 04/06/2025 6:16 AM CDT Panchito Barrett MD HEMATOLOGY ORDERABLES Fin al Result [facility] [employer] [facility] CLIA# [id number] [address] [place] [address] * (ABNORMAL) BASIC METABOLIC PANEL (04/06/2025 6:11 AM CDT) Only the most recent of3 resultswithin the time period is included. SODIUM 138 136 - 145 mmol/L 04/06/2025 7:17 AM [facility] POTASSIUM 4.1 3.5 - 5.0 mmol/L 04/06/2025 7:17 AM [facility] [employer] [facility] CHLORIDE 104 98 - 107 mmol/L 04/06/2025 7:17 AM [facility] LABORATORY [facility]. [facility] CO2 26 22 - 29 mmol/L 04/06/2025 7:17 AM [facility] [employer] [facility] CALCIUM 9.1 8.6 - 10.2 mg/dL 04/06/2025 7:17 AM [facility] LAB[facility]ATORY [facility] BUN 15 8 - 23 mg/dL 04/06/2025 7:17 AM [facility] CREATININE 1.46(H) 0.67 - 1.17 mg/dL 04/06/2025 7:17 AM [facility] [employer] [facility] Comment:The GFR result is no t clinically significant on patients <18 or >70 years of age. GLUCOSE 109(H) 74 - 99 mg/dL 04/06/2025 7:17 AM [facility] GFR 51 mL/min/1.7 3 sq meter 04/06/2025 7:17 AM [facility] Comment:eGFR calculated with 2020 CKD-EPI equation. Vegetarian diet, extremely high or low muscle mass, and may affect results. Cystatin C with Glomerular Filtration Rate is a suitable alternative for these patients. ANION GAP 8 8 - 16 mmol/L 04/06/2025 7:17 AM CDT [facility] Blood Venipuncture / Unknown 04/06/2025 6:11 AM CDT 04/06/2025 6:16 AM CDT Panchito Barrett MD CHEMISTRY ORDERABLES April l Result [facility] CLIA# [id number] [address] [place] [address] * EXTRA TUBE (LAV) (04/05/2025 9:39 AM CDT) Blood Venipuncture / Unknown 04/05/2025 9:39 AM CDT 04/05/2025 9:53 AM CDT External Provider [facility] HEMATOLOGY ORDERABLES Fi nal Result Performing Organization Address City/[facility]/ZIP Co de Phone Number [id number] [address] [place] [address] * CREATININE, BODY FLUID (04/04/2025 8:08 AM CDT) CREATININE, FLD 1.67 mg/dL 04/04/2025 9:11 AM CDT [facility] Body fluid ENTIRE SEROUS MEMBRANE OF PERITONEUM / Unknown Collection / Unknown 04/04/2025 8:08 AM CDT 04/04/2025 8:14 AM CDT Narrative [facility] [employer] [facility] - 04/04/2025 9:11 AM CDT Interpretive Criteria: Creatinine Fluid Note: Greater than 1 - 2 times serum creatinine suggests urine contamination. The reference range and other method performance specifications are unavailable for this body fluid. Comparison of this result with the concentration in the blood, serum, or plasma is recommended. Panchito Barrett MD BODY FLUIDS AND STOOLS Fi nal Result Performing Organization Address [facility]/State/ZIP Co de Phone Number [facility] [employer] [facility]# [id number] [address] [place] [address] * (ABNORMAL) HEMOGLOBIN A1C (04/04/2025 7:16 AM CDT) HEMOGLOBIN A1C 5.8(H) <5.7 % 04/04/2025 3:25 PM CDT [facility] EST. AVG GLUCOSE, A1C 120 mg/dL 04/04/2025 3:25 PM CDT [facility] Blood Venipuncture / Unknown 04/04/2025 7:16 AM CDT 04/04/2025 3:01 PM CDT Narrative [facility] [employer] [facility] - 04/04/2025 3:25 PM CDT HGB A1C INTERPRETATION NORMAL: <5.7% PRE-DIABETES: 5.7 - 6.4% DIABETES: 6.5% OR GREATER Beau Sánchez DO CHEMISTRY ORDERABLES Final Result Performing Organization Address [facility] Co de Phone Number [facility] [employer] [facility]# [id number] [address] [place] [address] * SC ANESTHESIA BLOCK PB PLACEHOLDER CHARGE (04/03/2025 3:29 [...] Tucker MD Performed by: Tiffany Tucker MD Factory Representative: Gilma Ratliff RN Preanesthetic Checklist Completed: patient [...] TAP Laterality: Left (bilateral) Injection technique: Single-shot [place] Identification: ultrasound guided Skin Infiltration: Lidocaine 2% [...] us Tiffany Tucker MD PROCEDURE/MINOR SURGICAL ORDE RABESDRAS Final Result * PATHOLOGY (04/03/2025 3:01 PM CDT) CASE REPORT Surgical Pathology Report Case: [id number] Authorizing Provider: Panchito Barrett MD Collected: 04/03/2025 03:01 PM Ordering Location: [facility] Received: 04/04/2025 06:29 AM Operating Room Pathologist: Rakesh Hopson MD Specimens: A) - Pelvic lymph nodes, right, RIGHT PELVIC LYMPH NODES B) - Kidney, right, RIGHT KIDNEY 5 11:44 AM [facility] [employer] [facility] FINAL DIAGNOSIS Right pelvic lymph node, [...] (no nodes submitted or found) 11:44 AM [facility] LABORATORY [facility] at 1144 CDT GROSS DESCRIPTION The specimens are received in two containers labeled Anuel Palacio. Received in the first container, additionally [...] as a specimen was received in formalin. Loading Checker sections are submitted as follows: B1-en face renal artery and vein margins; B2 through B4-perpendicular sections through bladder cuff margin; B5-perpendicular section through UPJ; B6-indirect sales representative sampling of proximal ureter; B7-indirect sales representative sampling of mid ureter; B8-indirect sales representative sampling of distal ureter; B9 through E15-ttkr superior calyces with irregular tissue; B13 through K27-uyvmdg inferior calyces with irregular tissue; L38-rrbrqdhs of renal sinus fat; T63-rakbkd parenchyma from the middle of the kidney. [facility] 5 11:44 AM [employer] [facility] MICROSCOPIC DESCRIPTION The slides are labeled [id number] and Anuel Palacio. Sections from right pelvic lymph node [...] with the above diagnosis. 5 11:44 AM [facility] [employer] [facility] OPERATIVE PROCEDURE 1: NEPHROURETERECTOMY ROBOTIC XI 2: CYSTOURETHROSCOPY FLEXIBLE 5 11:44 AM [employer] [facility] CLINICAL INFORMATION A RIGHT PELVIC LYMPH NODES RIGHT PELVIC LYMPH NODES Urothelial cancer (CMS/HCC) [C68.9] C68.9-Urothelial cancer (CMS/HCC) 5 11:44 AM [facility] SYNOPTIC REPORT URETER, RENAL PELVIS: Resection URETER, [...] Renal Tissue: Inflammation: Mild nonspecific interstitial inflammation 5 11:44 AM [facility] COMMENT Special stain, immunohistochemical, and/or in situ hybridization results are interpreted with controls that demonstrate appropriate staining reactions. Note on use of immunohistochemistry reagents and in situ hybridization probes: These tests were developed and their performance characteristics determined by [facility], Department of Laboratory Medicine. [...] part or completely in the following laboratories: [facility], [place] #[id number] [address] [place] [address] [facility], CLIA #[id number] [address] [place] [address] [facility], CLIA #[id number] [address] [place] [address] This report was created with the [employer] voice-activated dictation system. Inherent to this system is the possibility of syntax, grammar, punctuation and other errors that could impact the interpretation of the report. If there are interpretative questions about aspects of this report, please contact the performing pathologist. 11:44 AM CDT [facility] Tissue (Pelvic lymph nodes, right) Collection / Unknown 04/03/2025 3:01 PM CDT 04/04/2025 6:29 AM CDT Comment:RIGHT PELVIC LYMPH N ODES Tissue specimen (specimen) (Kidney, right) Collection / Unknown 04/03/2025 4:47 PM CDT 04/04/2025 6:29 AM CDT Comment:RIGHT KIDNEY Panchito Barrett MD PATHOLOGY/CYTOLOGY ORDERA BLES Final Result [id number] [address] [place] [id number] * SC ANES INSERT CATH, ART, PERCUT, SHORTTERM (04/03/2025 2:36 PM CDT) Narrative Romel Manning MD - 04/03/2025 2:36 PM CDT Romel Mannign MD 04/03/2025 2:37 PM Arterial Line Insertion [...] and 4 Fr Catheter Length (in.): 4 [place] Identification: palpation technique Number of attempts: 2 Successful placement: yes Assessment: blood return through port Procedure uneventful Post-procedure: line secured and dressing applied us Romel Manning MD PROCEDURE/MINOR SURG ICAL ORDERABLES Final Result * SC ANES VNPNXR 3 YEARS/> PHYS/QHP SKILL (04/03/2025 [...] PROCEDURE/MINOR SURG ICAL ORDERABLES Final Result * SC ANES VNPNXR 3 YEARS/> PHYS/QHP SKILL, PERIPHERAL IV ADULT (04/03/2025 2:36 PM CDT) Narrative Romel Manning [...] PROCEDURE/MINOR SURG ICAL ORDERABLES Final Result * SC ANES INSERT ENDOTRACHEAL AIRWAY (04/03/2025 2:34 PM [...] 1.1 <=2.0 mmol/L 04/03/2025 2:12 PM CDT [facility] SPECIMEN SOURCE, GASES POC Arterial 04/03/2025 2:12 PM CDT [facility] COMMENT, GASES POC Responsible Clinical Caregiver notified 04/03/2025 2:12 PM CDT [facility] Blood 04/03/2025 2:12 PM CDT 04/03/2025 2:15 PM CDT Panchito Barrett MD POINT OF CARE TESTING Fin al Result [facility]# [id number] [address] [place] [address] * (ABNORMAL) BLOOD GAS,(INCL. H+H, LYTES, GLUC) (04/03/2025 2:12 PM CDT) Pathologist [facility] PH BLOOD POC 7.47(H) 7.35 - 7.45 04/03/2025 2:12 PM CDT [facility] PCO2 POC 36 35 - 48 mm Hg 04/03/2025 2:12 PM CDT [facility] PO2 POC 424(H) 83 - 108 mm Hg 04/03/2025 2:12 PM CDT [facility] TCO2 (CALC) POC 27(H) 19 - 24 mmol/L 04/03/2025 2:12 PM CDT [facility] HCO3 (CALC) POC 26 22 - 26 mmol/L 04/03/2025 2:12 PM CDT [facility] O2 SATURATION POC 99(H) 94 - 98 % 04/03/2025 2:12 PM CDT [facility] BASE EXCESS POC 3 -2 - 3 mmol/L 04/03/2025 2:12 PM CDT [facility] HEMOGLOBIN POC 11.0(L) 13.6 - 16.5 g/dL 04/03/2025 2:12 PM CDT [facility] HEMATOCRIT POC 33(L) 40 - 48 % 04/03/2025 2:12 PM CDT [facility] Comment:Estimated Value GLUCOSE POC 106(H) 74 - 99 mg/dL 04/03/2025 2:12 PM CDT [facility] SODIUM POC 135(L) 136 - 145 mmol/L 04/03/2025 2:12 PM CDT [facility] POTASSIUM POC 3.6 3.5 - 5.0 mmol/L 04/03/2025 2:12 PM T [facility] CHLORIDE POC 105 98 - 107 mmol/L 04/03/2025 2:12 PM T [facility] CALCIUM IONIZED POC 4.8 4.7 - 5.1 mg/dL 04/03/2025 2:12 PM T [facility] O2 SATURATION CALCULATED POC 100(H) 94 - 98 % 04/03/2025 2:12 PM T [facility] Comment:Calculated sO2 may b e less accurate due to the factors affecting the oxygen dissociation curve. Measured sO2 by Co-oximetry is unaffected by these factors. Clinical correlation is suggested. PH TEMP CORRECT 7.47(H) 7.35 - 7.45 04/03/2025 2:12 PM [facility] PCO2 TEMP CORRECT 36 35 - 48 mm Hg 04/03/2025 2:12 PM [facility] PO2 TEMP CORRECT 424(H) 83 - 108 mm Hg 04/03/2025 2:12 PM T [facility] SPECIMEN SOURCE, GASES POC Arterial 04/03/2025 2:12 PM T [facility] PATIENT'S TEMPERATURE POC 37.0 degrees 04/03/2025 2:12 PM T [facility] COMMENT, GASES POC Responsible Clinical Caregiver notified 04/03/2025 2:12 PM T [facility] Blood, arterial 04/03/2025 2 :12 PM CDT 04/03/2025 2:15 PM CDT us Panchito Barrett MD ABG ORDERABLES Final Res ult [facility]# [id number] [address] [place] [place] [address] * IR INJECTION (04/03/2025 12:01 PM CDT) Narrative 04/03/2025 12:01 PM CDT Order information only. Exam was auto-finalized. Tiffany Tucker MD IR ORDERABLES Final Result * URINE CULTURE (04/03/2025 11:24 AM CDT) CULTURE No growth at 24 hours 04/04/2025 8:46 AM CDT [facility] Urine URINE SPECIMEN OBTAINED BY CLEAN CATCH PROCEDURE / Unknown 04/03/2025 11:24 AM CDT 04/03/2025 11:24 AM CDT Panchito Barrett MD MICROBIOLOGY - GENERAL OR DERABLES Final Result [facility]# [id number] [address] [place] [place] [address] * CT ABDOMEN PELVIS WO CONTRAST (01/01/2025 [...] fat-containing umbilical hernia. DICTATION LOCATION: Location [address] ORDERABLES Final Res ult * COLONOSCOPY REPORT (06/16/2021 10:25 AM [facility] [employer] [facility]) Narrative Procedure Note Vadim Bliss MD - 06/13/2021 8:46 AM CST [facility] [place] [facility] Patient Name: Anuel Palacio Procedure Date: 06/13/2021 Date of : [...] Addenda: 0 Procedure Date: 06/13/2021 8:13:[address] [place] [address] Vadim Bliss MD GI PROCEDURE ORDERABLES Final R esult from Last 3 Months or Most Recently Relevant to Health Maintenance Insurance RX [email or web address] Medicare Part D [address] [place] [id number] [facility] Advance Directives For more information, please contact: [phone] * Full Code (Latest Code Status on [...] 7:56 AM 06/13/2021 11:16 AM Care Teams Fretted Instruments Inspector Relationship Specialty [place] [id number] [address] PCP - General 04/09/25
--- OUTSIDE RECORDS SUMMARY | 2025-06-25 01:03 | XMS_ITS ---
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
--- NOTE | 2025-06-25 08:55 | P.PNAN_ITS ---
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 Patient Data Age: 70 Gender: M Height: 1.78 m Weight: 115.6 kg Allergies Allergy/AdvReac Type Severity Reaction Status Date / Time No Known Allergies Allergy Verified 06/25/25 08:45 Home Medications ?Medication ?Instructions ?Recorded ?Confirmed ?Type fenofibrate nanocrystallized 145 145 mg PO DAILY 03/2206/20/25 History mg tablet hydrochlorothiazide 25 mg tablet 25 mg PO DAILY 06/20/25 History losartan 50 mg tablet 50 mg PO DAILY 03/22/2506/04 History simvastatin 40 mg tablet 40 mg PO DAILY 03/22/2506/04 History aspirin 81 mg tablet,delayed 81 mg PO DAILY 05/16/25 1 08/21/24 History release (Adult Low Dose Aspirin) ferrous sulfate 325 mg (65 mg 325 mg PO DAILY 06/18/25 06/20/25 History iron) tablet (Feosol) mecobalamin (vitamin B12) 1,000 1,000 mcg PO DAILY 06/20/25 History mcg chewable tablet ondansetron 8 mg disintegrating 8 mg PO Q8-12H PRN agustina sea and 06/20/25 06/20/25 History tablet vomiting Patient hx anesthesia problems: none Family hx anesthesia problems: none Results Review: All pre-operative results and documents have been reviewed as part of the pre- operative evaluation. [facility] Past Medical History Medical History Elevated cholesterol Hypertension Cancer of right kidney scheduled for right nephrectomy later this month March 2025 Bladder cancer Surgical History Surgical History History of bladder surgery Social History Social History Smoking packs per day: 0.5 Smoking cigarettes per day: 10.0 Smoking status: Former smoker Tobacco type: cigars Smoking end date: 07/05/84 Alcohol intake: former Alcohol use details: rare social Substance use: never Substance use type: does not use Living arrangements: with family Additional living arrangements comments: Gender identity (if verbalized by the patient): Male Spiritual care concerns: No Anes - Eval Final PreProcedure Day of Procedure 06/25/25 08:55 Patient weight: obese Heart: regular rate and rhythm Lungs: clear to auscultation Airway: Mallampati scale class II Neurological: alert and oriented Last oral intake: >/= 8 hours ASA classification: III Emergent: no Anesthetic plan: proceed Anesthesia type and monitoring: general LMA and standard monitoring Results Review: All pre-operative results and documents have been reviewed as part of the pre- operative evaluation. Informed Consent: The patient's anesthetic plan and its attendant risks and benefits were discussed with the patient/family/POA. Questions were solicited and answers provided to the satisfaction of the patient/family/POA.
[2025-06-25] MEDS: LACTATED RINGERS 1,000 ML 30 ML IV CONT (09:40)
[2025-06-25] MEDS: KETOROLAC 15 MG/ML VIAL (*BKC) IV PUSH (09:53)
[2025-06-25 10:04] LABS: INR 1.0; Prothrombin Time 13.5 Seconds (11.1-14.7)
[2025-06-25 10:05] LABS: Partial Thromboplastin Time 27.0 Seconds (22.3-36.8)
--- NOTE | 2025-06-25 10:49 | PM.IMHP2 ---
H&P: HPI History of Present Illness Date/Time: 06/25/25 10:49 Chief Complaint: Urogenital CA Narrative: Pt with prior hx right nephrectomy for malignancy. He has started chemo tx and now needs placement of portacatheter due to poor peripherial vnous access. No prior port placement. Review of Systems Review of Systems: The remainder of the review of systems to include constitutional, HEENT, cardiovascular, respiratory, GI, , integumentary, musculoskeletal, endocrine, immunologic, hematologic, psychiatric, and neurologic are all negative except for which is mentioned above in the HPI. [facility] Past Medical History Medical History Elevated cholesterol Hypertension Cancer of right kidney scheduled for right nephrectomy later this month March 2025 Bladder cancer Surgical History Surgical History History of bladder surgery Social History Social History Smoking packs per day: 0.5 Smoking cigarettes per day: 10.0 Smoking status: Former smoker Tobacco type: cigars Smoking end date: 07/05/84 Alcohol intake: former Alcohol use details: rare social Substance use: never Substance use type: does not use Living arrangements: with family Additional living arrangements comments: Gender identity (if verbalized by the patient): Male Spiritual care concerns: No Meds Home Medications and Allergies Home Medications ?Medication ?Instructions ?Recorded ?Confirmed ?Type fenofibrate nanocrystallized 145 145 mg PO DAILY 03/22/25 06/25/25 History mg tablet hydrochlorothiazide 25 mg tablet 25 mg PO DAILY 03/22/25 06/25/25 History losartan 50 mg tablet 50 mg PO DAILY 03/22/25 06/25/25 History simvastatin 40 mg tablet 40 mg PO DAILY 03/22/25 06/25/25 History aspirin 81 mg tablet,delayed 81 mg PO DAILY 05/16/25 06/25/25 History release (Adult Low Dose Aspirin) ferrous sulfate 325 mg (65 mg 325 mg PO DAILY 06/18/25 06/20/25 History iron) tablet (Feosol) mecobalamin (vitamin B12) 1,000 1,000 mcg PO DAILY 06/18/25 06/20/25 History mcg chewable tablet ondansetron 8 mg disintegrating 8 mg PO Q8-12H PRN nausea and 06/20/25 06/20/25 History tablet vomiting Allergies Allergy/AdvReac Type Severity Reaction Status Date / Time No Known Allergies Allergy Verified 06/25/25 08:45 Vital Signs Vital Signs - 24 hr 06/25/25 08:25 Temperature 36.4 C Pulse Rate 108 H Respiratory Rate 18 Blood Pressure 124/89 Pulse Oximetry 100 Oxygen Delivery Room Air Exam Const: General: comfortable and no acute distress HENMT: Ears: TM's normal bilaterally Face/Nose/Sinus: Normal nares present Mouth: Yes moist mucous membranes Eyes: General: appearance normal, both eyes and all related structures Sclera: sclerae normal Pupils: Equal, round and reactive pupils present EOM: EOMs intact bilaterally Neck: Neck: supple and no JVD Resp: Effort & Inspection: normal respiratory effort Auscultation: clear to auscultation bilaterally Cardio: Rate: regular rate Rhythm: regular rhythm GI: GI Palp: Yes Soft to palpation, No Firmness to palpation present (GI), No Tenderness to palpation present (GI) and No Guarding due to palpation present (GI) Skin: General skin exam: normal color and no rashes or lesions noted Extrem: General: normal to inspection Psych: Mental Status: mental status grossly normal Affect: normal affect Assessment and Plan Assessment and plan (1) Cancer of right kidney: Code(s): C64.1 - Malignant neoplasm of right kidney, except renal pelvis Status: Acute Assessment and Plan: Pt with poor peripherial venous access needing port placement today to continue chemo tx. Will place portacatheter today. Risks to include bleeding need blood transfusion and iatrogenic pneumothorax needing a chest tube was discussed. He understands and wishes to proceed.
--- NOTE | 2025-06-25 11:00 | WPDHPUPDATE1 ---
History and Physical Update Update Date/Time: 06/25/25 11:00 History and Physical has been reviewed, including an updated exam of the patient. There are NO changes in the patient's condition. Risks, benefits, and alternatives have been discussed and questions answered. Patient agrees to proceed with procedure.
[2025-06-25] MEDS: ceFAZolin 2 GM in SODIUM CHLORIDE 0.9% IV 50 ML 100 ML IVPB (11:04)
[2025-06-25] MEDS: LIDO 1%/EPINEPHRINE 1:100,000 50 ML VIAL (11:44)
--- NOTE | 2025-06-25 12:03 | W.PM.PROC2 ---
Procedure Note - Detailed Date of Procedure 06/25/25 Pre-op Diagnosis Right renal cell carcinoma Post-op Diagnosis Same Procedure Performed Placement of right subclavian vein single-lumen port a catheter with intraoperative fluoroscopy. Surgeon Gary Sheikh MD [employer] Jamie Alvarado [employer] Anesthesia General Indications Patient is a 70-year-old white male who has had a prior right nephrectomy for malignancy. He is undergoing chemotherapy treatments at this time but has now developed poor peripheral venous access. He presents now for placement of jose a catheter to continue administration of chemotherapy treatments. Findings None significant Description of Procedure After informed consent was obtained patient brought to the operating room was placed supine position and general LMA anesthesia was administered. The bilateral upper anterior neck and chest was then prepped and draped in usual sterile fashion. A time-out was then performed correctly identifying the patient as well as the procedure to be performed. He was given perioperative IV antibiotics. I 1st started by anesthetizing an area just below the medial 3rd of the right clavicle with 1% lidocaine mixed with 0.5% Marcaine with some epinephrine. A transverse incision was then made this area the scalpel the dissection was carried down through subcu tissues anti reach the anterior pectoralis major fascia. I then created a sub cutaneous port pocket inferior to the incision utilizing electrocautery and blunt finger dissection. I then placed the patient head-down Trendelenburg position and then through the incision utilizing a long 18gauge spinal needle I percutaneously cannulated the right subclavian vein without difficulty. There was prompt return of dark venous appearing blood. A guidewire was then advanced through the needle into the right subclavian vein and subsequently into the superior vena cava. Intraoperative fluoroscopy was then used to visualize the tip of the guidewire documenting that it was in the correct position. I then proceeded to advance a dilator breakaway sheath over the guidewire. The dilator and wire were removed leaving the sheath in place. A 9.6 Armenian silastic single-lumen catheter was then advanced through the sheath into the right subclavian vein subsequently into the right atrium of the heart. The sheath was then torn away leaving the catheter in place. Intraoperative fluoroscopy was then used once more to visualize the tip of the catheter. Then with traction on the catheter externals the chest wall I pulled back on the catheter until the tip was in the distal superior vena cava. The catheter was then cut to the appropriate the skin level and then attached to the titanium Smart Port. The port was then secured subcutaneous port pocket utilizing 3-0 Prolene sutures on 3 sides. I then irrigated out the incision sterile saline solution and hemostasis was good. I then accessed the port with a Loomis needle and aspirated blood easily. Flushed with heparinized saline solution. I then proceeded to close incision utilizing interrupted 3-0 Vicryl sutures in the subcutaneous tissues. The skin edges were approximated utilizing a running subcuticular 4-0 Monocryl suture. The incision was then cleaned the skin glue was applied. Lastly the port was percutaneously accessed through the skin with a Loomis needle and again aspirated blood easily and was flushed with 5000units of IV heparin. The patient tolerated the procedure well no complications. All sponges, needles, and instrument counts were correct at the end procedure. EBL was _20__cc. The patient was awakened and taken to recovery in stable and satisfactory condition. Postprocedure portable chest x-ray was performed. Reading is pending at the time of dictation. Implants 9.6 Armenian single-lumen silastic catheter attached to a titanium Smart Port placed via the right subclavian vein. Estimated Blood Loss 20 Drains No Packing No Pathology None sent Complications No immediate complications Condition Stable Disposition PACU [facility] Billing Surgery - Charge Forward: Surgery Billing
== END 2025-06-25 13:25 | disposition home or self-care (01) ==
PROVIDERS: Visit Provider Surgery
PROC: (CPT 36561; principal; 2025-06-25 10:30)
DX: C64.1 Malignant neoplasm of right kidney, except renal pelvis (principal); Z90.5 Acquired absence of kidney; Z79.899 Other long term (current) drug therapy; Z87.891 Personal history of nicotine dependence
CPT/HCPCS: 36561; 36415; 77001; 85610; 85730; J0690; C1788; J1644; J1885; J2004; J2371; J2704; J7030; J7120